=== PATIENT | female | born 1990 | race Caucasian/White ===

== ENCOUNTER 2017-08-06 08:47 | Emergency (ER) | payer MEDICAID ==
[2017-08-06] MEDS ORDERED: Ondansetron 4 MG/2 ML SDV IVPUSH ONE (09:18)
[2017-08-06] MEDS ORDERED: Sodium Chloride 0.9% 1,000 ML IV SCH (09:30)
[2017-08-06] MEDS ORDERED: Iopamidol 612 MG/ML 100 ML Bottle IVPUSH ONE (09:41)
[2017-08-06] MEDS ORDERED: Diatrizoate Meglumine/Diatrizoate Sodium 37% 120 ML Bottle PO ONE (09:41)
[2017-08-06] MEDS: Sodium Chloride 0.9% 10 ML Syringe FLUSH PRN ×2 (09:47→10:39)
--- NOTE | 2017-08-06 10:09 | EDM.PDOC ---
ED HPI GENERAL MEDICAL PROBLEM - General Chief Complaint: Abdominal Pain Stated Complaint: ABDOMINAL PAIN/VOMITING Time Seen by Provider: 08/06/17 08:57 Source of Information: Reports: Patient, RN Notes Reviewed History Limitations: Reports: No Limitations - History of Present Illness INITIAL COMMENTS - FREE TEXT/NARRATIVE: The patient states that she developed upper central abdominal pain this morning. It is sharp/burning in character. It came on gradually. It has been waxing and waning. She has not identified any modifiers. She also reports emesis and watery diarrhea that began this morning. She states that she had similar symptoms about 9 months ago. She saw a physician in [place]. Tests were done, including an EGD and colonoscopy, all of which was negative. She was prescribed a proton pump inhibitor, which she states she takes on occasion, but that she states does not help. The patient relates that she thinks she had some coffee grounds in her stool last week, and that when she had emesis this morning, it tasted kind of like blood, although there was no visible blood or coffee grounds in the emesis. No recent fever, urinary symptoms, chest pain, dyspnea, or palpitations. No recent antibiotics. No recent travel. No recent spoiled food. No similarly ill contacts. The patient does not have a PCP. Middle Abdominal Pain Score (Numeric/FACES): 10 - Related Data Allergies Allergy/AdvReac Type Severity Reaction Status Date / Time metoclopramide [From Reglan] Allergy Itching Verified 08/06/17 08:58 Home Meds: Home Meds Ondansetron [Zofran ODT] 4 mg PO Q8H PRN #10 tab.dis 08/06/17 [Rx] Past Medical History - Past Surgical History GI Surgical History: Reports: Cholecystectomy, Colonoscopy, EGD Female Surgical History: Reports: Section (x 3), Tubal Ligation Social & Family History - Tobacco Use Smoking Status *Q: Never Smoker - Caffeine Use Caffeine Use: Reports: Soda - Alcohol Use Alcohol Use History: No - Recreational Drug Use Recreational Drug Use: No - Living Situation & Occupation Living situation: Reports: Single, with Family Occupation: Unemployed ED ROS GENERAL - Review of Systems Review Of Systems: ROS reveals no pertinent complaints other than HPI. ED EXAM, GI/ABD - Physical Exam Exam: See Below Exam Limited By: No Limitations General Appearance: Alert, WD/WN, Mild Distress (Appears uncomfortable) Eyes: Bilateral: Normal Appearance, EOMI Ears: Normal External Exam, Hearing Grossly Normal Nose: Normal Inspection, No Blood Throat/Mouth: Normal Inspection, Normal Lips, Normal Voice, No Airway Compromise Head: Atraumatic, Normocephalic Neck: Normal Inspection, Full Range of Motion Respiratory/Chest: No Respiratory Distress, Lungs Clear, Normal Breath Sounds, No Accessory Muscle Use Cardiovascular: Normal Peripheral Pulses, Regular Rate, Rhythm, No Gallop, No JVD, No Murmur, No Rub GI/Abdominal Exam: Normal Bowel Sounds, Soft, No Organomegaly, No Distention, No Abnormal Bruit, No Mass, Pelvis Stable, Tender (Midline abdomen only. Nontender laterally.) (Female) Exam: Deferred Rectal (Female) Exam: Deferred Back Exam: Normal Inspection, Full Range of Motion. No: CVA Tenderness (L), CVA Tenderness (R) Extremities: Normal Inspection, Normal Range of Motion, No Pedal Edema, Normal Capillary Refill Neurological: Alert, Oriented, Normal Cognition, No Motor/Sensory Deficits Psychiatric: Normal Affect Skin Exam: Warm, Dry, Intact, Normal Color, No Rash Course - Vital Signs Last Recorded V/S: Last Vital Signs Temp 36.0 C 08/06/17 08:55 Pulse 80 08/06/17 08:55 Resp 16 08/06/17 08:55 BP 126/66 08/06/17 08:55 Pulse Ox 99 08/06/17 08:55 - Orders/Labs/Meds Orders: Active Orders 24 hr Category Date Time Status Hemoccult [Fecal Occult Blood Collection] [RC] Care 08/06/17 09:20 Active ASDIRECTED CULTURE STOOL + SHIGATOX [RM] Stat Lab 08/06/17 10:20 Received NOROVIRUS GROUP 1 & 2 RT-PCR Stat Lab 08/06/17 10:20 Received Labs: Laboratory Tests 08/06/17 08/06/17 08/06/17 Range/Units 09:49 09:49 10:20 WBC 7.14 (3.98-10.04) K/mm3 RBC 4.47 (3.98-5.22) M/mm3 Hgb 12.0 (11.2-15.7) gm/L Hct 37.3 (34.1-44.9) % MCV 83.4 (79.4-94.8) fl MCH 26.8 (25.6-32.2) pg MCHC 32.2 (32.2-35.5) g/dl RDW Std Deviation 45.7 (36.4-46.3) fL Plt Count 299 (182-369) K/mm3 MPV 11.1 (9.4-12.3) fl Neutrophils % (Manual) 54 (40-60) % Band Neutrophils % 0 (0-10) % Lymphocytes % (Manual) 42 H (20-40) % Atypical Lymphs % 0 % Monocytes % (Manual) 4 (2-10) % Eosinophils % (Manual) 0 L (0.7-5.8) % Basophils % (Manual) 0 L (0.1-1.2) Platelet Estimate Adequate RBC Morph Comment Normal Sodium 142 (136-145) mEq/L Potassium 4.2 (3.5-5.1) mEq/L Chloride 107 (98-107) mEq/L Carbon Dioxide 27 (21-32) mEq/L Anion Gap 12.2 (5-15) BUN 9 (7-18) mg/dL Creatinine 0.8 (0.55-1.02) mg/dL Est Cr Clr Drug Dosing 94.21 mL/min Estimated GFR (MDRD) > 60 (>60) mL/min BUN/Creatinine Ratio 11.3 L (14-18) Glucose 109 H (74-106) mg/dL Calcium 9.0 (8.5-10.1) mg/dL Total Bilirubin 0.2 (0.2-1.0) mg/dL AST 9 L (15-37) U/L ALT 20 (14-59) U/L Alkaline Phosphatase 86 (46-116) U/L Total Protein 7.4 (6.4-8.2) g/dl Albumin 3.8 (3.4-5.0) g/dl Globulin 3.6 gm/dL Albumin/Globulin Ratio 1.1 (1-2) Lipase 216 (73-393) U/L Urine Color (Yellow) Urine Appearance (Clear) Urine pH (5.0-8.0) Ur Specific [place] (1.005-1.030) Urine Protein (Negative) Urine Glucose (UA) (Negative) Urine Ketones (Negative) Urine Occult Blood (Negative) Urine Nitrite (Negative) Urine Bilirubin (Negative) Urine Urobilinogen (0.2-1.0) Ur Leukocyte Esterase (Negative) Urine RBC (0-5) /hpf Urine WBC (0-5) /hpf Ur Epithelial Cells (0-5) /hpf Urine Bacteria (FEW) /hpf Urine Mucus (FEW) /hpf Urine HCG, Qual Negative (NEGATIVE) 08/06/17 Range/Units 10:20 WBC (3.98-10.04) K/mm3 RBC (3.98-5.22) M/mm3 Hgb (11.2-15.7) gm/L Hct (34.1-44.9) % MCV (79.4-94.8) fl MCH (25.6-32.2) pg MCHC (32.2-35.5) g/dl RDW Std Deviation (36.4-46.3) fL Plt Count (182-369) K/mm3 MPV (9.4-12.3) fl Neutrophils % (Manual) (40-60) % Band Neutrophils % (0-10) % Lymphocytes % (Manual) (20-40) % Atypical Lymphs % % Monocytes % (Manual) (2-10) % Eosinophils % (Manual) (0.7-5.8) % Basophils % (Manual) (0.1-1.2) Platelet Estimate RBC Morph Comment Sodium (136-145) mEq/L Potassium (3.5-5.1) mEq/L Chloride (98-107) mEq/L Carbon Dioxide (21-32) mEq/L Anion Gap (5-15) BUN (7-18) mg/dL Creatinine (0.55-1.02) mg/dL Est Cr Clr Drug Dosing mL/min Estimated GFR (MDRD) (>60) mL/min BUN/Creatinine Ratio (14-18) Glucose (74-106) mg/dL Calcium (8.5-10.1) mg/dL Total Bilirubin (0.2-1.0) mg/dL AST (15-37) U/L ALT (14-59) U/L Alkaline Phosphatase (46-116) U/L Total Protein (6.4-8.2) g/dl Albumin (3.4-5.0) g/dl Globulin gm/dL Albumin/Globulin Ratio (1-2) Lipase (73-393) U/L Urine Color Light yellow (Yellow) Urine Appearance Clear (Clear) Urine pH 6.5 (5.0-8.0) Ur Specific [place] 1.015 (1.005-1.030) Urine Protein Negative (Negative) Urine Glucose (UA) Negative (Negative) Urine Ketones Negative (Negative) Urine Occult Blood Negative (Negative) Urine Nitrite Negative (Negative) Urine Bilirubin Negative (Negative) Urine Urobilinogen 0.2 (0.2-1.0) Ur Leukocyte Esterase Negative (Negative) Urine RBC Not seen (0-5) /hpf Urine WBC 0-5 (0-5) /hpf Ur Epithelial Cells 0-5 (0-5) /hpf Urine Bacteria Few (FEW) /hpf Urine Mucus Few (FEW) /hpf Urine HCG, Qual (NEGATIVE) Meds: Medications Discontinued Medications Generic Name Dose Route Start Last Admin Trade Name Freq PRN Reason Stop Dose Admin Diatrizoate Meglum/Diatrizoate Sod 90 ml 08/06/17 09:41 08/06/17 10:40 Gastrografin 37% PO 08/06/17 09:42 90 ml ONETIME ONE Administration Sodium Chloride 1,000 mls @ 150 mls/hr 08/06/17 09:30 08/06/17 09:46 Normal Saline IV 150 mls/hr ASDIRECTED FAZAL Administration Iopamidol 100 ml 08/06/17 09:41 08/06/17 10:39 Isovue-300 (61%) IVPUSH 08/06/17 09:42 100 ml ONETIME ONE Administration Loperamide HCl 4 mg 08/06/17 11:39 08/06/17 11:50 Imodium PO 08/06/17 11:40 4 mg ONETIME STA Administration Ondansetron HCl 4 mg 08/06/17 09:18 08/06/17 09:46 Zofran IVPUSH 08/06/17 09:19 4 mg ONETIME ONE Administration Sodium Chloride 10 ml 08/06/17 09:41 08/06/17 10:39 Saline Flush FLUSH 10 ml ONETIME PRN Administration IV FLUSH - Re-Assessments/Exams Free Text/Narrative Re-Assessment/Exam: 08/06/17 10:37 Notified that the stool Hemoccult was negative. 08/06/17 11:11 CT of the abdomen and pelvis with oral and IV contrast is read by Dr. Elizabeth as: 1. 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 This is normal variant. 2. Fluid within the colon compatible with clinical history of diarrhea. 3. No additional abnormality is identified on CT study of the abdomen and pelvis. 08/06/17 11:39 Test results discussed with the patient. Today's workup is unremarkable, and does not explain the cause of the patient's symptoms. It is possible that her abdominal pain is due to cramps caused by her diarrhea. I will start the patient on oral Imodium. I will refer her to Dr. Torre for follow-up, should her symptoms persist. Departure - Departure Time of Disposition: 11:40 Disposition: Home, Self-Care 01 Condition: Fair Clinical Impression: Gastroenteritis - Discharge Information Prescriptions: Ondansetron [Zofran ODT] 4 mg PO Q8H PRN #10 tab.dis PRN Reason: Nausea/Vomiting Instructions: Viral Gastroenteritis, Adult, [id number] Referrals: PCP,None [Primary Care Provider] - Sofia Farris MD [Physician] - Audie Torre MD [Physician] - Forms: ED Department Discharge Additional Instructions: You were seen in the emergency room for midline abdominal pain, vomiting, and diarrhea. Workup in the ER included blood work, a urinalysis, a urine test, numerous stool studies, and a CT scan of your abdomen and pelvis. Your entire workup was unremarkable, and does not explain the cause of your symptoms. Your vomiting and diarrhea are MOST LIKELY due to viral gastroenteritis. You have been started on the anti-nausea medicine Zofran. A prescription for this has been electronically sent to [facility], [address], across the road from [facility]. Dissolve 1 tablet on your tongue up to every 8 hours, as needed for nausea/vomiting. You have been started on the anti-diarrhea medicine Imodium (loperamide). This medicine is available [id number], and the generic is just as good as the brand name. Take one tablet (2 mg) after each loose bowel movement, to a maximum of 8 tablets (16 mg) within a 24-hour period. Stay well hydrated - Gatorade or Powerade are best. Eat a bland diet, such as oatmeal, bananas, rice, applesauce, etc. If your symptoms persist, follow-up with the surgeon Dr. Audie Torre for further evaluation. You may follow-up with Dr. Sofia Farris as a primary care physician. If any other problems, please do not hesitate to return to the ER. - My Orders Last 24 Hours: My Active Orders 08/06/17 09:20 Hemoccult [Fecal Occult Blood Collection] [RC] ASDIRECTED 08/06/17 10:20 CULTURE STOOL + SHIGATOX [RM] Stat [facility]OVIRUS GROUP 1 & 2 RT-PCR Stat - Assessment/Plan Last 24 Hours: My Active Orders 08/06/17 09:20 Hemoccult [Fecal Occult Blood Collection] [RC] ASDIRECTED 08/06/17 10:20 CULTURE STOOL + SHIGATOX [RM] Stat NOROVIRUS GROUP 1 & 2 RT-PCR Stat
--- NOTE | 2017-08-06 10:58 | CT ---
CT abdomen and pelvis Technique: Multiple axial sections were obtained from above the dome of the diaphragm inferiorly through the pubic symphysis. Intravenous and oral contrast was utilized. Reconstructed coronal and sagittal images were obtained. Comparison: No previous abdominal imaging. Findings: Small portion of the visualized lung bases are clear. Liver shows no focal parenchymal abnormality. Surgical clips are seen from prior cholecystectomy. Spleen appears within normal limits. Adrenal glands show no nodule. Pancreas is within normal limits. Kidneys show symmetric contrast enhancement without hydronephrosis or mass. Aorta shows no aneurysmal dilatation. No retroperitoneal adenopathy or mesenteric abnormalities are seen. Appendix is seen which appears normal. No pelvic mass or adenopathy is seen. Fluid is noted within portions of the colon correlating to clinical history of diarrhea. No bowel wall thickening is seen. No bowel dilatation is identified. No free fluid or inflammatory change is seen. Bone window settings were reviewed which appear within normal limits for the patient's age. Delayed images shows 2 ureters on both sides. No ureteral dilatation is seen. Impression: 1. 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 This is normal variant. 2. Fluid within the colon compatible with clinical history of diarrhea. 3. No additional abnormality is identified on CT study of the abdomen and pelvis. Diagnostic code #2
[2017-08-06] MEDS ORDERED: Loperamide 2 MG Cap PO STA (11:39)
== END 2017-08-06 12:02 | disposition home or self-care (01) ==
LOC: JD.ED 08:47
DX: K52.9 Noninfective gastroenteritis and colitis, unspecified (principal); Z88.8 Allergy status to other drugs, medicaments and biological substances
CPT/HCPCS: 36415; 74177; 80053; 81001; 81025; 82270; 83690; 85025; 87046; 87425; 87798; 89055; 96361; 96374; 99284; A9270; J2405; J7040; J7050; Q9963; Q9967; 87427

== ENCOUNTER 2019-05-12 19:05 | Emergency (ER) | payer MEDICAID ==
--- NOTE | 2019-05-12 20:11 | EDM.PDOC ---
ED HPI GENERAL MEDICAL PROBLEM - General Chief Complaint: General Stated Complaint: BREAST PAIN Time Seen by Provider: 05/12/19 19:28 Source of Information: Reports: Patient, RN Notes Reviewed History Limitations: Reports: No Limitations - History of Present Illness INITIAL COMMENTS - FREE TEXT/NARRATIVE: Patient is a 28-year-old female who presents to the ED for evaluation of left- sided breast pain. The patient states that she developed these pains and noticed a lump, and was evaluated by Francisca Boateng, at [facility] on , she states that she is scheduled for a mammography and ultrasound about 1-1/2 weeks from now. Patient states she is having left breast pain, that is sharp stabbing in nature. The patient states she is having some sort of white nipple discharge, but is not liquid-like, she is not breast feeding at this time. The patient states she has no chance of , as she has had a tubal ligation is currently on her period. Patient states that she has been having left breast pain, feelings of a lump in the breast tissue, and generalized itchiness with bumpy skin on the left lateral breast at around the 3 :00 position. The patient notes that she has had a maternal grandmother, who has had a lump removed, and the maternal grandmother's 20 also had a lump removed, she states this was around their early 30s, she states that she has a second cousin on her mother's side also has had a lump removed, she does not know if any of these have been cancerous. She does not report any other general feelings of being unwell. 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 [No Known Home Meds] 05/12/19 [History] Past Medical History - Past Surgical History GI Surgical History: Reports: Cholecystectomy, Colonoscopy, EGD Female Surgical History: Reports: Section (x 3), Tubal Ligation Social & Family History - Caffeine Use Caffeine Use: Reports: Soda - Living Situation & Occupation Living situation: Reports: Single, with Family Occupation: Unemployed ED ROS GENERAL - Review of Systems Review Of Systems: See Below Constitutional: Denies: Fever, Chills HEENT: Reports: No Symptoms Respiratory: Denies: Shortness of Breath Cardiovascular: Denies: Chest Pain Endocrine: Reports: No Symptoms GI/Abdominal: Denies: Abdominal Pain, Diarrhea, Nausea, Vomiting : Reports: Other (breast lump/pain). Denies: Discharge, Dysuria Musculoskeletal: Reports: No Symptoms Skin: Reports: Other (slightly bumpy skin on left lateral breast, itchy at times ) Neurological: Reports: No Symptoms Psychiatric: Reports: No Symptoms Hematologic/Lymphatic: Reports: No Symptoms Immunologic: Reports: No Symptoms ED EXAM, GENERAL - Physical Exam Exam: See Below Exam Limited By: No Limitations General Appearance: Alert, WD/WN, No Apparent Distress, Anxious Throat/Mouth: Normal Inspection, Normal Lips, Normal Teeth, Normal Gums, Normal Oropharynx, Normal Voice, No Airway Compromise Head: Atraumatic, Normocephalic Neck: Normal Inspection, Supple, Non-Tender, Full Range of Motion Respiratory/Chest: No Respiratory Distress, Lungs Clear, Normal Breath Sounds, No Accessory Muscle Use, Chest Non-Tender Cardiovascular: Normal Peripheral Pulses, Regular Rate, Rhythm, No Murmur GI/Abdominal: Normal Bowel Sounds, Soft, Non-Tender, No Distention, No Mass (Female) Exam: Other (Breast exam revealed slightly lumpy her the normal tissue, on the right breast but no discrete lumps or nodules noted. Left breast : Around the 9 o'clock position on the left breast near the M[place] LOC, there is a very tiny palpable firm rubbery-type lump noted, the patient states this is what she thought she felt, and states that this did provoke some pain when palpated. No nipple discharge was noted on either breast.) Extremities: Normal Inspection, Normal Capillary Refill Neurological: Alert, Oriented, Normal Cognition, No Motor/Sensory Deficits Psychiatric: Normal Affect, Normal Mood, Anxious Skin Exam: Warm, Dry, Intact, Normal Color, No Rash Lymphatic: No Adenopathy (in axilla) Course - Vital Signs Last Recorded V/S: Last Vital Signs Temp 97.5 F 05/12/19 19:23 Pulse 79 05/12/19 19:23 Resp 20 05/12/19 19:23 BP 112/50 L 05/12/19 19:23 Pulse Ox 99 05/12/19 19:23 - Re-Assessments/Exams Free Text/Narrative Re-Assessment/Exam: 05/12/19 20:25 Patient was evaluated in the ED today for her painful left breast. Patient was worried regarding the length of time it is going to take until she gets her mammography at [facility], due to the history of her grandmother and second cousin having lumps she was concerned. I did consult with our radiology department, and they might have some openings this week, midweek. I did provide the patient with an outpatient order for mammography and ultrasound of the left breast for further evaluation, she may still follow up with Francisca Boateng for results. I will give her other general recommendations and discharge her home at this time. Departure - Departure Time of Disposition: 20:08 Disposition: Home, Self-Care 01 Condition: Fair Clinical Impression: Painful lumpy left breast - Discharge Information *PRESCRIPTION DRUG MONITORING PROGRAM REVIEWED*: No *COPY OF PRESCRIPTION DRUG MONITORING REPORT IN PATIENT JING: No Instructions: Breast Self-Awareness, [id number], Mammogram, [id number] Referrals: Francisca Boateng, T[employer] EDGE MACHINE OPERATOR [Primary Care Provider] - Forms: ED Department Discharge Additional Instructions: You were evaluated in the ER [facility] for your left breast pain and concerns of a left breast lump. An outpatient order for mammography and breast ultrasound has been provided to you, I checked with radiology, and there are openings in the schedule as early as this week Sunday at 3 PM for mammography, please call [phone], at around 8 AM tomorrow to schedule these appointments. You may still follow up with Francisca Boateng after the tests have been performed. You may take Tylenol or ibuprofen every 6 hours as needed for further pain relief. Please return to the ED if her symptoms should change or worsen.
== END 2019-05-12 20:23 | disposition home or self-care (01) ==
LOC: JD.ED 19:05
DX: N63.20 Unspecified lump in the left breast, unspecified quadrant (principal); N64.4 Mastodynia; Z88.8 Allergy status to other drugs, medicaments and biological substances
CPT/HCPCS: 99283

== ENCOUNTER 2019-11-25 00:30 | Emergency (ER) | payer MEDICAID ==
[2019-11-25] MEDS ORDERED: Ondansetron 4 MG Tab.DIS PO ONE (00:53)
--- NOTE | 2019-11-25 00:59 | EDM.PDOC ---
ED HPI GENERAL MEDICAL PROBLEM - General Chief Complaint: Abdominal Pain Stated Complaint: ABDOMINAL PAIN Time Seen by Provider: 11/25/19 00:33 Source of Information: Reports: Patient History Limitations: Reports: No Limitations - History of Present Illness INITIAL COMMENTS - FREE TEXT/NARRATIVE: The patient presents with lower abdominal pain, back pain and nausea. This all started yesterday. She thought she was going to have her period. She had some light bleeding and then usually she will get heavy bleeding but it did not come. She has more pain then normal. She had a tubal ligation 3 years ago. Her LNMP was in July. It is not uncommon for her periods to be spaced out. She also had some low back pain with it. She also had the urge to push when urinating. She had nausea but no vomiting. Onset: Gradual Duration: Day(s): (yesterday) Location: Reports: Abdomen Quality: Reports: Sharp Severity: Moderate Improves with: Reports: None Worsens with: Reports: None Associated Symptoms: Reports: Nausea/Vomiting. Denies: Chest Pain, Cough, Fever /Chills, Headaches, Shortness of Breath Lower Abdomen Pain Score (Numeric/FACES): 5 - Related Data Allergies Allergy/AdvReac Type Severity Reaction Status Date / Time metoclopramide [From Reglan] Allergy Itching Verified 11/25/19 00:43 Home Meds: Home Meds . [No Known Home Meds] 05/12/19 [History] Past Medical History - Past Surgical History GI Surgical History: Reports: Cholecystectomy, Colonoscopy, EGD Female Surgical History: Reports: Section (x 3), Tubal Ligation Social & Family History - Tobacco Use Smoking Status *Q: Never Smoker Second Hand Smoke Exposure: No - Caffeine Use Caffeine Use: Reports: None - Recreational Drug Use Recreational Drug Use: No - Living Situation & Occupation Living situation: Reports: Single, with Family Occupation: Unemployed ED ROS GENERAL - Review of Systems Review Of Systems: See Below Constitutional: Reports: No Symptoms HEENT: Reports: No Symptoms Respiratory: Reports: No Symptoms Cardiovascular: Reports: No Symptoms Endocrine: Reports: No Symptoms GI/Abdominal: Reports: Abdominal Pain, Nausea. Denies: Diarrhea, Vomiting : Reports: No Symptoms Musculoskeletal: Reports: Back Pain ED EXAM, GI/ABD - Physical Exam Exam: See Below Exam Limited By: No Limitations General Appearance: Alert, No Apparent Distress Ears: Normal External Exam Nose: Normal Inspection Head: Atraumatic, Normocephalic Neck: Normal Inspection Respiratory/Chest: No Respiratory Distress, Lungs Clear, Normal Breath Sounds Cardiovascular: Regular Rate, Rhythm, No Edema, No Murmur GI/Abdominal Exam: Soft, Non-Tender, No Organomegaly, No Mass Back Exam: Normal Inspection Extremities: Normal Inspection Course - Vital Signs Last Recorded V/S: Last Vital Signs Temp 97.5 F 11/25/19 00:38 Pulse 70 11/25/19 00:38 Resp 18 11/25/19 00:38 BP 122/69 11/25/19 00:38 Pulse Ox 100 11/25/19 00:38 - Orders/Labs/Meds Orders: Active Orders 24 hr Category Date Time Status Abdomen Pelvis wo Cont [CT] Stat Exams 11/25/19 01:43 Taken ED Antiemetic Medication Reflex [OM.PC] Stat Oth 11/25/19 00:54 Ordered Labs: Laboratory Tests 11/25/19 11/25/19 11/25/19 Range/Units 00:49 01:00 01:00 WBC 8.81 (3.98-10.04) K/mm3 RBC 4.37 (3.98-5.22) M/mm3 Hgb 12.6 (11.2-15.7) gm/dl Hct 38.3 (34.1-44.9) % MCV 87.6 D (79.4-94.8) fl MCH 28.8 (25.6-32.2) pg MCHC 32.9 (32.2-35.5) g/dl RDW Std Deviation 44.4 (36.4-46.3) fL Plt Count 337 (182-369) K/mm3 MPV 11.3 (9.4-12.3) fl Neut % (Auto) 44.8 (34.0-71.1) % Lymph % (Auto) 44.4 (19.3-51.7) % [place] % (Auto) 7.2 (4.7-12.5) % Eos % (Auto) 3.0 (0.7-5.8) Baso % (Auto) 0.5 (0.1-1.2) % Neut # (Auto) 3.96 (1.56-6.13) K/mm3 Lymph # (Auto) 3.91 H (1.18-3.74) K/mm3 [place] # (Auto) 0.63 H (0.24-0.36) K/mm3 Eos # (Auto) 0.26 (0.04-0.36) K/mm3 Baso # (Auto) 0.04 (0.01-0.08) K/mm3 Sodium 142 (136-145) mEq/L Potassium 3.4 L (3.5-5.1) mEq/L Chloride 105 (98-107) mEq/L Carbon Dioxide 27 (21-32) mEq/L Anion Gap 13.4 (5-15) BUN 10 (7-18) mg/dL Creatinine 0.9 (0.55-1.02) mg/dL Est Cr Clr Drug Dosing 81.50 mL/min Estimated GFR (MDRD) > 60 (>60) mL/min BUN/Creatinine Ratio 11.1 L (14-18) Glucose 97 (74-106) mg/dL Calcium 8.7 (8.5-10.1) mg/dL Total Bilirubin 0.2 (0.2-1.0) mg/dL AST 9 L (15-37) U/L ALT 19 (14-59) U/L Alkaline Phosphatase 86 (46-116) U/L Total Protein 7.3 (6.4-8.2) g/dl Albumin 3.9 (3.4-5.0) g/dl Globulin 3.4 gm/dL Albumin/Globulin Ratio 1.2 (1-2) Lipase 91 (73-393) U/L HCG, Qual (NEGATIVE) Urine Color Dark yellow (Yellow) Urine Appearance Clear (Clear) Urine pH 6.0 (5.0-8.0) Ur Specific [place] > or = 1.030 (1.005-1.030) Urine Protein Trace H (Negative) Urine Glucose (UA) Negative (Negative) Urine Ketones Negative (Negative) Urine Occult Blood 2+ H (Negative) Urine Nitrite Negative (Negative) Urine Bilirubin Negative (Negative) Urine Urobilinogen 0.2 (0.2-1.0) Ur Leukocyte Esterase Negative (Negative) U Hyaline Cast (Auto) 0-5 (0-5) /lpf Urine RBC 0-5 (0-5) /hpf Urine WBC 0-5 (0-5) /hpf Ur Squamous Epith Cells 0-5 (0-5) /hpf Amorphous Sediment Few H (NOT SEEN) /hpf Urine Bacteria Moderate H (FEW) /hpf Urine Mucus Many H (FEW) /hpf 11/25/19 Range/Units 01:00 WBC (3.98-10.04) K/mm3 RBC (3.98-5.22) M/mm3 Hgb (11.2-15.7) gm/dl Hct (34.1-44.9) % MCV (79.4-94.8) fl MCH (25.6-32.2) pg MCHC (32.2-35.5) g/dl RDW Std Deviation (36.4-46.3) fL Plt Count (182-369) K/mm3 MPV (9.4-12.3) fl Neut % (Auto) (34.0-71.1) % Lymph % (Auto) (19.3-51.7) % [place] % (Auto) (4.7-12.5) % Eos % (Auto) (0.7-5.8) Baso % (Auto) (0.1-1.2) % Neut # (Auto) (1.56-6.13) K/mm3 Lymph # (Auto) (1.18-3.74) K/mm3 [place] # (Auto) (0.24-0.36) K/mm3 Eos # (Auto) (0.04-0.36) K/mm3 Baso # (Auto) (0.01-0.08) K/mm3 Sodium (136-145) mEq/L Potassium (3.5-5.1) mEq/L Chloride (98-107) mEq/L Carbon Dioxide (21-32) mEq/L Anion Gap (5-15) BUN (7-18) mg/dL Creatinine (0.55-1.02) mg/dL Est Cr Clr Drug Dosing mL/min Estimated GFR (MDRD) (>60) mL/min BUN/Creatinine Ratio (14-18) Glucose (74-106) mg/dL Calcium (8.5-10.1) mg/dL Total Bilirubin (0.2-1.0) mg/dL AST (15-37) U/L ALT (14-59) U/L Alkaline Phosphatase (46-116) U/L Total Protein (6.4-8.2) g/dl Albumin (3.4-5.0) g/dl Globulin gm/dL Albumin/Globulin Ratio (1-2) Lipase (73-393) U/L HCG, Qual Negative (NEGATIVE) Urine Color (Yellow) Urine Appearance (Clear) Urine pH (5.0-8.0) Ur Specific [place] (1.005-1.030) Urine Protein (Negative) Urine Glucose (UA) (Negative) Urine Ketones (Negative) Urine Occult Blood (Negative) Urine Nitrite (Negative) Urine Bilirubin (Negative) Urine Urobilinogen (0.2-1.0) Ur Leukocyte Esterase (Negative) U Hyaline Cast (Auto) (0-5) /lpf Urine RBC (0-5) /hpf Urine WBC (0-5) /hpf Ur Squamous Epith Cells (0-5) /hpf Amorphous Sediment (NOT SEEN) /hpf Urine Bacteria (FEW) /hpf Urine Mucus (FEW) /hpf Meds: Medications Discontinued Medications Generic Name Dose Route Start Last Admin Trade Name Thadq PRN Reason Stop Dose Admin Ondansetron HCl 4 mg 11/25/19 00:53 11/25/19 01:06 Zofran Odt PO 11/25/19 00:54 4 mg ONETIME ONE Administration - Re-Assessments/Exams Free Text/Narrative Re-Assessment/Exam: 11/25/19 00:58 I ordered labs, UA and zofran 4mg ODT. 11/25/19 02:25 Her CBC and CMP look good. Her HCG is negative. Her UA shows some blood. 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 No nephrolithiasis, hydronephrosis or hydroureter. Departure - Departure Time of Disposition: 14:30 Disposition: Home, Self-Care 01 Condition: Good Clinical Impression: Nausea Abdominal pain Qualifiers: Abdominal location: lower abdomen, unspecified Qualified Code(s): R10.30 - Lower abdominal pain, unspecified - Discharge Information *PRESCRIPTION DRUG MONITORING PROGRAM REVIEWED*: Not Applicable *COPY OF PRESCRIPTION DRUG MONITORING REPORT IN PATIENT JING: Not Applicable Referrals: Francisca Boateng, OILER HELPER [Primary Care Provider] - 1 Week Forms: ED Department Discharge Additional Instructions: Drink plenty of fluids. Take motrin or tylenol for pain. Follow up with Francisca within a week. Please return if you are worse. Sepsis Event Note - Evaluation Sepsis Screening Result: No Definite Risk - Focused Exam Vital Signs: Vital Signs Temp Pulse Resp BP Pulse Ox 11/25/19 00:38 97.5 F 70 18 122/69 100 Date Exam was Performed: 11/25/19 Time Exam was Performed: 02:25 - My Orders Last 24 Hours: My Active Orders 11/25/19 00:54 ED Antiemetic Medication Reflex [OM.PC] Stat 11/25/19 01:43 Abdomen Pelvis wo Cont [CT] Stat - Assessment/Plan Last 24 Hours: My Active Orders 11/25/19 00:54 ED Antiemetic Medication Reflex [OM.PC] Stat 11/25/19 01:43 Abdomen Pelvis wo Cont [CT] Stat
--- NOTE | 2019-11-25 09:20 | CT ---
CT abdomen and pelvis Technique: Multiple axial sections were obtained from the top of the liver inferiorly through the pubic symphysis. Intravenous and oral contrast not utilized. Study has been performed as a ureteral stone protocol. Comparison: Prior CT abdomen and pelvis exam of 08/06/17. Findings: Duplicated collecting systems with 2 ureters noted on both sides. No ureteral dilatation is seen. No ureteral or renal calculi are seen. Visualized lung bases show nothing acute. Noncontrast appearance of the liver shows no discrete abnormality. Spleen appears within normal limits. Adrenal glands show no nodule. Pancreas shows no abnormality. Surgical clips are seen from prior cholecystectomy. Aorta shows no aneurysm. No retroperitoneal adenopathy or mesenteric abnormalities are seen. Appendix is seen which is normal. No pelvic mass or adenopathy is seen. No free fluid or inflammatory change is appreciated. Bone window settings were reviewed which appear within normal limits for the patient's age. Small fat-containing umbilical hernia is noted. Impression: 1. Duplicated collecting system within both kidneys. 2. Nothing acute is appreciated on noncontrast CT study of the abdomen and pelvis. Diagnostic code #2 This report was dictated in MDT I agree with preliminary report from [facility], finalized on 11/25/19, 3:19 AM [place] Daylight Time
== END 2019-11-25 02:33 | disposition home or self-care (01) ==
LOC: JD.ED 00:30
DX: R10.30 Lower abdominal pain, unspecified (principal); R11.0 Nausea; Z98.51 Tubal ligation status; Z90.49 Acquired absence of other specified parts of digestive tract; Z88.8 Allergy status to other drugs, medicaments and biological substances
CPT/HCPCS: 36415; 74176; 80053; 81001; 83690; 84703; 85025; 99284; A9270

== ENCOUNTER 2020-04-03 14:20 | Emergency (ER) | payer MEDICAID ==
[2020-04-03] MEDS ORDERED: LORazepam 2 MG/ML SDV IVPUSH ONE (14:56)
--- NOTE | 2020-04-03 17:01 | EDM.PDOC ---
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 She feels better now after arrival to ED. she has not been ill with cough, fever or other prior atypical sx. - Related Data Allergies Allergy/AdvReac Type Severity Reaction Status Date / Time metoclopramide [From Reglan] Allergy Itching Verified 04/03/20 14:32 Home Meds: Home Meds . 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: - Past Surgical History GI Surgical History: Reports: Cholecystectomy, Colonoscopy, EGD Female Surgical History: Reports: Section, Tubal Ligation Social & Family History - Tobacco Use Smoking Status *Q: Never Smoker Second Hand Smoke Exposure: No - Caffeine Use Caffeine Use: Reports: None - Recreational Drug Use Recreational Drug Use: No - Living Situation & Occupation Living situation: Reports: Single, with Family Occupation: Unemployed ED ROS GENERAL - Review of Systems Review Of Systems: See Below Constitutional: Denies: Fever, Chills HEENT: Denies: Rhinitis, Throat Pain Respiratory: Denies: Shortness of Breath, Cough Cardiovascular: Reports: Chest Pain (gone) GI/Abdominal: Denies: Abdominal Pain, Nausea, Vomiting Musculoskeletal: Denies: Shoulder Pain, Arm Pain, Back Pain Skin: Reports: No Symptoms Neurological: Reports: Dizziness (gone) ED EXAM, GENERAL - Physical Exam Exam: See Below General Appearance: Alert, Anxious (mild) Eye Exam: Bilateral Eye: PERRL Head: Atraumatic Neck: Supple Respiratory/Chest: No Respiratory Distress, Lungs Clear Cardiovascular: Regular Rate, Rhythm GI/Abdominal: Soft, Non-Tender Back Exam: No: CVA Tenderness (L), CVA Tenderness (R) Extremities: Normal Inspection, Normal Range of Motion. No: Pedal Edema, Redness Neurological: Alert, Oriented, No Motor/Sensory Deficits Skin Exam: Warm, Dry, Normal Color EKG INTERPRETATION EKG Date: 04/03/20 Rhythm: NSR [place]: Normal P-Wave: Present QRS: Normal ST-T: Normal Course - Vital Signs Last Recorded V/S: Last Vital Signs Temp 97.1 F 04/03/20 14:31 Pulse 81 04/03/20 14:31 Resp 22 H 04/03/20 14:31 BP 134/74 04/03/20 14:31 Pulse Ox 98 04/03/20 14:31 - Orders/Labs/Meds Labs: Laboratory Tests 04/03/20 Range/Units 15:05 D-Dimer, Quantitative 0.22 (0.19-0.50) mg/L Meds: Medications Discontinued Medications Generic Name Dose Route Start Last Admin Trade Name Kevin PRN Reason Stop Dose Admin Lorazepam 0.5 mg 04/03/20 14:56 04/03/20 15:11 Ativan IVPUSH 04/03/20 14:57 0.5 mg ONETIME ONE Administration - Re-Assessments/Exams Free Text/Narrative Re-Assessment/Exam: 04/05/20 07:13 EKG nl, CXR and d dimer nl, sinus rythm, no ectopy, discharge instr. as documented. Departure - Departure Time of Disposition: 16:58 Disposition: Home, Self-Care 01 Condition: Fair Clinical Impression: Palpitations Instructions: Palpitations, Apoa-ze-Ojzy Referrals: Francisca Boateng NP [Primary Care Provider] - Forms: ED Department Discharge Additional Instructions: Your heart and lungs have checked out really well. I suspect what you experienced today were extra heart beats, we call those PVC's. We have not seen more of those while here in the ED. You have been given ativan 0.5 mg for relaxation. Do not drive the remainder of today due to sedative effect. Follow up clinic as needed. Return to ED as needed. Sepsis Event Note (ED) - Evaluation Sepsis Screening Result: No Definite Risk
--- NOTE | 2020-04-05 11:14 | CR ---
Chest: Portable view of the chest was obtained. Comparison: No prior chest imaging is available. Heart size and mediastinum are normal. Lungs are clear with no acute parenchymal change. Bony structures are grossly intact. Impression: 1. Nothing acute is seen on portable chest x-ray. Diagnostic code #1 This report was dictated in MDT
== END 2020-04-03 17:11 | disposition home or self-care (01) ==
LOC: JD.ED 14:20
DX: R00.2 Palpitations (principal); R42 Dizziness and giddiness; R07.89 Other chest pain; Z88.8 Allergy status to other drugs, medicaments and biological substances
CPT/HCPCS: 36415; 71045; 85379; 93005; 96374; 99285; J2060; 93010; 99283

== ENCOUNTER 2020-07-28 22:09 | Emergency (ER) | payer MEDICAID ==
[2020-07-28] MEDS ORDERED: Ketorolac 30 MG/ML SDV IVPUSH ONE (22:35)
[2020-07-28] MEDS ORDERED: Ondansetron 4 MG/2 ML SDV IVPUSH ONE (22:35)
[2020-07-28] MEDS ORDERED: Sodium Chloride 0.9% 1,000 ML IV STA (22:35)
[2020-07-28] MEDS ORDERED: diphenhydrAMINE 50 MG/ML SDV IVPUSH ONE (22:35)
--- NOTE | 2020-07-28 22:43 | EDM.PDOC ---
ED HPI GENERAL MEDICAL PROBLEM - General Chief Complaint: Headache Stated Complaint: HEADACHE Time Seen by Provider: 07/28/20 22:27 Source of Information: Reports: Patient, RN Notes Reviewed History Limitations: Reports: No Limitations - History of Present Illness INITIAL COMMENTS - FREE TEXT/NARRATIVE: Patient is a 29-year-old female presenting to the emergency department with complaints of headache consistently for the last week and episodes of frequent headaches for the last 2 months. She describes it as an intense frontal headache with blurred vision. She does have photophobia. Complains of feeling of "bubbling "in her ears. She has no known history of migraines. Has not been evaluated since the onset of these headaches 2 months ago. She does state that a couple months back she had bilateral otitis media which was treated with antibiotics but never reevaluated. She denies any nausea associated with these headaches. She is had no fever or chills. 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 Denies: Fever, Chills, Decreased Appetite HEENT: Reports: Sinus Problem (pain and pressure), Vision Change. Denies: Ear Discharge, Ear Pain, Rhinitis, Vertigo Respiratory: Reports: No Symptoms Cardiovascular: Reports: No Symptoms Endocrine: Reports: No Symptoms GI/Abdominal: Reports: No Symptoms. Denies: Nausea : Reports: No Symptoms Musculoskeletal: Reports: No Symptoms Skin: Reports: No Symptoms Neurological: Reports: Headache. Denies: Dizziness, Difficulty Walking, Change in Speech, Gait Disturbance Psychiatric: Reports: No Symptoms Hematologic/Lymphatic: Reports: No Symptoms Immunologic: Reports: No Symptoms - Physical Exam Exam: See Below General Appearance: Alert, Mild Distress Eye Exam: Bilateral Eye: Normal Inspection, PERRL Ears: Normal External Exam, Normal Canal, Hearing Grossly Normal, Other (bilateral TM fluid) Nose: Normal Inspection, Normal Mucosa, No Blood Head Exam: Atraumatic, Normocephalic, Facial Tenderness (frontal and maxillary sinuses) Respiratory/Chest: No Respiratory Distress, Lungs Clear, Normal Breath Sounds, No Accessory Muscle Use, Chest Non-Tender Cardiovascular: Normal Peripheral Pulses, Regular Rate, Rhythm, No Edema, No Gallop, No JVD, No Murmur, No Rub Neuro Exam (Abbreviated): Alert, Oriented, CN II-XII Intact, Normal Cognition, N ormal Gait, Normal Reflexes, No Motor/Sensory Deficits Psychiatric: Normal Affect, Normal Mood Skin Exam: Warm, Dry, Intact, Normal Color, No Rash Course - Vital Signs Last Recorded V/S: Last Vital Signs Temp 96.6 F L 07/28/20 22:27 Pulse 88 07/28/20 22:27 Resp 20 07/28/20 22:27 BP 132/85 07/28/20 22:27 Pulse Ox 100 07/28/20 22:27 - Orders/Labs/Meds Orders: Active Orders 24 hr Category Date Time Status Head wo Cont [CT] Stat Exams 07/28/20 22:36 Taken Sodium Chloride 0.9% [Normal Saline] 1,000 ml Med 07/28/20 22:35 Active IV NOW Medication Orders Sodium Chloride (Normal Saline) 1,000 mls @ 999 mls/hr IV NOW STA Stop: 07/28/20 23:35 Last Admin: 07/28/20 22:54 Dose: 999 mls/hr Documented by: LINH Meds: Medications Generic Name Dose Route Start Last Admin Trade Name Freq PRN Reason Stop Dose Admin Sodium Chloride 1,000 mls @ 999 mls/hr 07/28/20 22:35 07/28/20 22:54 Normal Saline IV 07/28/20 23:35 999 mls/hr NOW STA Administration Discontinued Medications Generic Name Dose Route Start Last Admin Trade Name Kevin PRSerena Reason Stop Dose Admin Diphenhydramine HCl 25 mg 07/28/20 22:35 07/28/20 22:56 Benadryl IVPUSH 07/28/20 22:36 25 mg ONETIME ONE Administration Ketorolac Tromethamine 30 mg 07/28/20 22:35 07/28/20 22:54 Toradol IVPUSH 07/28/20 22:36 30 mg ONETIME ONE Administration Ondansetron HCl 4 mg 07/28/20 22:35 07/28/20 22:54 Zofran IVPUSH 07/28/20 22:36 4 mg ONETIME ONE Administration - Re-Assessments/Exams Free Text/Narrative Re-Assessment/Exam: Patient is a 29-year-old female presenting to the emergency department with complaints of a 2-week month history of intermittent headaches with worsening symptoms over the last week. She has taken numerous [id number] medications with little to no relief. Complains of sinus pressure and "bubbling" in her ears. She has tried numerous [id number]-[id number] medications with little to no relief. She also complains of intermittent blurred vision. Denies any history of migraines. States a few months back she did have bilateral otitis media for which she was treated with antibiotics. I have ordered CT scan of the head without contrast, NS 1 L bolus, Toradol 30 mg IV, Benadryl 25 mg IV, Zofran 4 mg IV. 07/28/20 23:33 Patient's headache has resolved with the medications given. Head CT shows no acute intracranial abnormalities. Given that she has had this sinus pressure for a number of weeks and intermittently for a number of months, we will treat f or bacterial sinusitis. We will start her on Augmentin twice a day for 5 days. Also sent a prescription for Flonase nasal spray. Recommend follow-up with her primary care provider at her next available visit. Return to ER as needed. Discharge instructions as documented. Departure - Departure Time of Disposition: 23:34 Disposition: Home, Self-Care 01 Condition: Good Clinical Impression: Headache Qualifiers: Headache type: unspecified Headache chronicity pattern: unspecified pattern Intractability: not intractable Qualified Code(s): R51.9 - Headache, unspecified - Discharge Information *PRESCRIPTION DRUG MONITORING PROGRAM REVIEWED*: No *COPY OF PRESCRIPTION DRUG MONITORING REPORT IN PATIENT JING: No Prescriptions: Amoxicillin/Clavulanate K [Augmentin 875-125 MG] 1 tab PO BID 5 Days #9 tablet Fluticasone Propionate [Flonase] 2 sprays NASBOTH DAILY #1 bottle Referrals: Francisca Boateng CROSSING TENDER [Primary Care Provider] - Forms: ED Department Discharge Additional Instructions: You were seen in the emergency department today for intermittent headaches for the last 2 months with worsening of symptoms over the last week. Exam findings it did show fluid in both ears with no signs of infection. Head CT was completed and showed no abnormalities. While in the ER, you received IV fluids, Benadryl, Zofran, and Toradol which did relieve your headache. You been started on Augmentin for the treatment of bacterial sinusitis. Take this medication as prescribed. You have also been prescribed Flonase nasal spray to help facilitate drainage of the fluid from the ears. Recommend follow-up with your primary care provider at her next available visit. Return to the ER as needed. Sepsis Event Note (ED) - Evaluation Sepsis Screening Result: No Definite Risk - Focused Exam Vital Signs: Vital Signs Temp Pulse Resp BP Pulse Ox 07/28/20 22:27 96.6 F L 88 20 132/85 100 - My Orders Last 24 Hours: My Active Orders 07/28/20 22:35 Sodium Chloride 0.9% [Normal Saline] 1,000 ml IV NOW 07/28/20 22:36 Head wo Cont [CT] Stat - Assessment/Plan Last 24 Hours: My Active Orders 07/28/20 22:35 Sodium Chloride 0.9% [Normal Saline] 1,000 ml IV NOW 07/28/20 22:36 Head wo Cont [CT] Stat
[2020-07-28] MEDS ORDERED: Amoxicillin/Clavulanate K 875-125 MG Tab PO ONE (23:37)
--- NOTE | 2020-07-29 08:46 | CT ---
Head CT Technique: Multiple axial sections through the brain were obtained. Intravenous contrast was not utilized. Comparison: No prior intracranial imaging is available. Findings: Ventricles along with basal cisterns and sulci over the convexities are within normal limits. No abnormal parenchymal densities are seen. No evidence of intracranial hemorrhage. No midline shift or mass-effect is appreciated. Bone window settings were reviewed. The visualized paranasal sinuses and mastoid sinuses show nothing acute. No acute calvarial finding is appreciated. Impression: 1. Nothing acute is identified on noncontrast head CT exam. Diagnostic code #1 I agree with preliminary report from [facility], finalized on 07/29/20, 12:22 AM OBSTETRICS GYNECOLOGY PHYSICIAN
== END 2020-07-28 23:56 | disposition home or self-care (01) ==
LOC: JD.ED 22:09
DX: R51.9 Headache, unspecified (principal); Z88.8 Allergy status to other drugs, medicaments and biological substances
CPT/HCPCS: 70450; 96374; 96375; 99284; A9270; J1200; J1885; J2405; J7030

== ENCOUNTER 2020-08-13 20:01 | Emergency (ER) | payer MEDICAID ==
[2020-08-13] MEDS ORDERED: Ondansetron 4 MG/2 ML SDV IVPUSH ONE (20:39)
[2020-08-13] MEDS ORDERED: diphenhydrAMINE 50 MG/ML SDV IVPUSH STA (20:39)
[2020-08-13] MEDS ORDERED: Ketorolac 30 MG/ML SDV IVPUSH STA (20:39)
[2020-08-13] MEDS ORDERED: Sodium Chloride 0.9% 1,000 ML IV ONE (20:39)
--- NOTE | 2020-08-13 20:47 | EDM.PDOC ---
ED HPI GENERAL MEDICAL PROBLEM - General Chief Complaint: Headache Stated Complaint: HEADACHE,VOMITING Time Seen by Provider: 08/13/20 20:05 Source of Information: Reports: Patient, Old Records (ED visit 07/28/2020) History Limitations: Reports: No Limitations - History of Present Illness INITIAL COMMENTS - FREE TEXT/NARRATIVE: Ms. Marinelli is a pleasant 30-year-old woman who now presents the ED with a headache that developed around 16:00 this afternoon. She states the pain is felt in her forehead and down her neck. She states that she vomited once en route to the ED, then once again once here. When asked, she stated that she might have some flashing lights, but she was not really sure. No wavy lines or blurry vision. No tingling, numbness, or weakness. She states that her headache is virtually identical to the one she had when last seen here in the ED on 07/28/2020. A CT of the head at that time was unremarkable. She states that she was diagnosed with a sinus infection, treated with antibiotics, which did not help her symptoms. The patient states that she took 200 mg of ibuprofen around 16:00, then 25 mg of oral diphenhydramine around 19:15, which did not help. Here in the ED, the patient is found to be hemodynamically stable, afebrile, saturating 99% on room air. Prior to 16:00 this afternoon, the patient denies having a recent fever, chills, sore throat, ear pain, nasal or sinus congestion, cough, dyspnea, chest pain, palpitations, nausea, vomiting, constipation, diarrhea, abdominal pain, urinary symptoms, recent weight gain or weight loss, recent bloody bowel movements or black bowel movements, recent joint aches, headaches, or rashes. The patient's PCP is Francisca Boateng NP. Her General Surgeon is Dr. Rosa Jiménez. She has not received an influenza vaccine this season, and declined an offer to receive 1 here in the ED. Headache Pain Score (Numeric/FACES): 10 - Related Data Allergies Allergy/AdvReac Type Severity Reaction Status Date / Time metoclopramide [From Reglan] AdvReac Severe Anxiety Verified 08/13/20 20:08 Home Meds: Home Meds Fluticasone Propionate [Flonase] 2 sprays NASBOTH DAILY #1 bottle 12/30/20 [Rx] Ondansetron [Zofran ODT] 1 tab PO Q8H PRN #10 tab.dis 08/13/20 [Rx] Past Medical History Endocrine/Metabolic History: Reports: Obesity/BMI 30+ - Past Surgical History GI Surgical History: Reports: Cholecystectomy (2012), Colonoscopy (x 1), EGD (x 1) Female Surgical History: Reports: Section (x 3), Tubal Ligation Social & Family History - Tobacco Use Tobacco Use Status *Q: Never Tobacco User - Caffeine Use Caffeine Use: Reports: Tea - Alcohol Use Alcohol Use History: No - Recreational Drug Use Recreational Drug Use: No - Living Situation & Occupation Living situation: Reports: Single, with Family Occupation: Unemployed ED ROS GENERAL - Review of Systems Review Of Systems: Comprehensive ROS is negative, except as noted in HPI. Neurological: Reports: Headache (gretchen leat once a month) - Physical Exam Exam: See Below Exam Limited By: No Limitations General Appearance: Alert, WD/WN, No Apparent Distress Eye Exam: Bilateral Eye: EOMI, Normal Inspection, PERRL Ears: Normal External Exam, Normal Canal, Hearing Grossly Normal, Normal TMs Nose: Normal Inspection, Normal Mucosa, No Blood Throat/Mouth: Normal Inspection, Normal Lips, Normal Teeth, Normal Gums, Normal Oropharynx, Normal Voice, No Airway Compromise Head Exam: Atraumatic, Normocephalic Neck: Normal Inspection, Supple, Non-Tender, Full Range of Motion Respiratory/Chest: No Respiratory Distress, Lungs Clear, Normal Breath Sounds, No Accessory Muscle Use Cardiovascular: Normal Peripheral Pulses, Regular Rate, Rhythm, No Edema, No Gallop, No JVD, No Murmur, No Rub GI/Abdominal: Normal Bowel Sounds, Soft, Non-Tender, No Organomegaly, No Distention, No Abnormal Bruit, No Mass Neuro Exam (Abbreviated): Alert, Oriented, CN II-XII Intact, Normal Cognition, No Motor/Sensory Deficits Back Exam: Normal Inspection, Full Range of Motion, NT Extremities: Normal Inspection, Normal Range of Motion, Normal Capillary Refill Psychiatric: Normal Affect Skin Exam: Warm, Dry, Intact, Normal Color, No Rash Course - Vital Signs Last Recorded V/S: Last Vital Signs Temp 35.8 C L 08/13/20 20:05 Pulse 84 08/13/20 20:05 Resp 18 08/13/20 20:05 BP 126/80 08/13/20 20:05 Pulse Ox 99 08/13/20 20:05 - Orders/Labs/Meds Meds: Medications Discontinued Medications Generic Name Dose Route Start Last Admin Trade Name eKvin PRN Reason Stop Dose Admin Diphenhydramine HCl 25 mg 08/13/20 20:39 08/13/20 20:52 Benadryl IVPUSH 08/13/20 20:40 25 mg ONETIME STA Administration Sodium Chloride 1,000 mls @ 999 mls/hr 08/13/20 20:39 08/13/20 20:51 Normal Saline IV 08/13/20 21:39 999 mls/hr ONETIME ONE Administration Ketorolac Tromethamine 30 mg 08/13/20 20:39 08/13/20 20:52 Toradol IVPUSH 08/13/20 20:40 30 mg ONETIME STA Administration Ondansetron HCl 4 mg 08/13/20 20:39 08/13/20 20:51 Zofran IVPUSH 08/13/20 20:40 4 mg ONETIME ONE Administration - Re-Assessments/Exams Free Text/Narrative Re-Assessment/Exam: 08/13/20 20:40 As above, the patient developed a headache felt in her forehead and down her neck around 16:00 this afternoon, essentially the same as the types of headaches that she gets at least once a month, and, specifically, the same as she had on 07/28/2020 when she was last seen here in the ED. A CT of the head at that time was unremarkable. Her physical examination and neurologic examination today are completely normal. The patient requested the same cocktail that she was given on 07/28/2020, which included IV fluid, IV Toradol, IV diphenhydramine, and IV Zofran. I have ordered the same, cutting the diphenhydramine down to 25 mg, since she already took 25 mg at home. 08/13/20 21:54 The patient states that she feels substantially better. I will discharge her home with a prescription for Zofran ODT. The patient asked about the possible causes of her headache. Her symptoms seem like a migraine, however, they are adequately treated with Toradol, diphenhydramine and Zofran, none of which are neuroleptics. It seems that her headache is most likely due to sinusitis or tension. Departure - Departure Time of Disposition: 21:54 Disposition: Home, Self-Care 01 Condition: Good Clinical Impression: Headache Qualifiers: Headache type: unspecified Headache chronicity pattern: unspecified pattern Intractability: not intractable Qualified Code(s): R51.9 - Headache, unspecified - Discharge Information *PRESCRIPTION DRUG MONITORING PROGRAM REVIEWED*: Not Applicable *COPY OF PRESCRIPTION DRUG MONITORING REPORT IN PATIENT JING: Not Applicable Referrals: Francisca Boateng NP [Primary Care Provider] - Diamond Bolton MD [Physician] - Forms: ED Department Discharge Additional Instructions: You were seen in the emergency room for a headache with nausea and vomiting. You were treated with IV fluid, IV pain medicine, and IV anti-nausea medicine, with significant improvement in your symptoms. We recommend that you stay adequately hydrated and get plenty of rest tonight in a dark, quiet place. A prescription for the anti-nausea medicine Zofran has been sent to the [facility], located at [address] [place] [address]. You may dissolve 1 tablet of Zofran on your tongue up to every 8 hours, as needed for nausea/vomiting. We recommend that you follow-up with your PCP, Francisca Boateng NP, to discuss further evaluation of your headaches, including the possibility of being referred to a headache specialist. If any other problems, please do not hesitate to return to the ER. Sepsis Event Note (ED) - Evaluation Sepsis Screening Result: No Definite Risk - Focused Exam Vital Signs: Vital Signs Temp Pulse Resp BP Pulse Ox 08/13/20 20:05 35.8 C L 84 18 126/80 99
== END 2020-08-13 22:05 | disposition home or self-care (01) ==
LOC: JD.ED 20:01
DX: R51.9 Headache, unspecified (principal); E66.9 Obesity, unspecified; Z68.31 Body mass index [BMI] 31.0-31.9, adult; Z88.8 Allergy status to other drugs, medicaments and biological substances; Z79.899 Other long term (current) drug therapy
CPT/HCPCS: 96374; 96375; 99283; J1200; J1885; J2405; J7030; 99284

== ENCOUNTER 2020-08-26 22:10 | Emergency (ER) | payer MEDICAID ==
[2020-08-26] MEDS ORDERED: Ondansetron 4 MG/2 ML SDV IVPUSH ONE (22:50)
[2020-08-26] MEDS ORDERED: LORazepam 2 MG/ML SDV IVPUSH STA (22:50)
[2020-08-26] MEDS ORDERED: Sodium Chloride 0.9% 1,000 ML IV ONE (22:50)
--- NOTE | 2020-08-26 22:56 | EDM.PDOC ---
ED HPI GENERAL MEDICAL PROBLEM - General Chief Complaint: General Stated Complaint: POST OP DIFFICULTY BREATHING, LEGS HURT Time Seen by Provider: 08/26/20 22:29 Source of Information: Reports: Patient, Significant Other (Boyfriend) History Limitations: Reports: No Limitations - History of Present Illness INITIAL COMMENTS - FREE TEXT/NARRATIVE: Ms. Marinelli is a very pleasant 30-year-old woman who now presents the ED with numerous symptoms that developed after she underwent an outpatient umbilical herniorrhaphy earlier today. She states that the surgery occurred around 9:30 or 10:00 this morning, and that she was discharged home around 13:30 with prescriptions for a stool softener, ibuprofen 600 mg, and [place]. She states that she started to feel somewhat confused around 14:00, right around the time she was being discharged. She then started to feel nauseated and clammy around 17:00, chest tightness with dyspnea around 20:45, tightness in her throat around 21:00, cramps felt in the back of both of her cramps around 21:30, then tightness felt in both of her wrists about the time she arrived to the ED. No prior similar symptoms, and, in particular, the patient denies similar symptoms following prior surgeries. The patient states that she had previously been prescribed an antibiotic, however, never filled it, and was not given a new prescription for 1 today. She has not taken any of the prescribed ibuprofen, but did take 1 tablet of the prescribed [place] around 19:30 tonight. She did not take any [id number] or home remedies to address any of her symptoms, specifically. Here in the ED, the patient's initial BP is found to be slightly elevated at 144/88, otherwise, she is hemodynamically stable, afebrile, saturating 98 to 100% on room air. She appears to be somewhat anxious. Prior to this afternoon, the patient denies having a recent fever, chills, sore throat, ear pain, nasal or sinus congestion, cough, dyspnea, chest pain, palpitations, nausea, vomiting, constipation, diarrhea, abdominal pain, urinary symptoms, recent weight gain or weight loss, recent bloody bowel movements or black bowel movements, recent joint aches, headaches, or rashes. The patient's PCP is Francisca Boateng NP. Her Surgeon is Dr. Diamond Bolton. She has not received an influenza vaccine this season, and declined an offer to receive one here in the ED. Bilateral Lower Leg Pain Score (Numeric/FACES): 4 - Related Data Allergies Allergy/AdvReac Type Severity Reaction Status Date / Time metoclopramide [From Reglan] AdvReac Severe Anxiety Verified 08/26/20 22:23 Home Meds: Home Meds Docusate Sodium [Stool Softener] 100 mg PO DAILY 08/26/20 [History] Hydrocodone/Acetaminophen [Hydrocodone-Acetamin 5-325 mg] 1 tab PO Q4H PRN 08/26/20 [History] Past Medical History Endocrine/Metabolic History: Reports: Obesity/BMI 30+ - Past Surgical History GI Surgical History: Reports: Cholecystectomy (2012), Colonoscopy (x 1), EGD (x 1), Hernia, Abdominal (umbilical, 08/26/2020) Female Surgical History: Reports: Section (x 3), Tubal Ligation Social & Family History - Tobacco Use Tobacco Use Status *Q: Never Tobacco User Second Hand Smoke Exposure: No - Caffeine Use Caffeine Use: Reports: Tea - Alcohol Use Alcohol Use History: No - Recreational Drug Use Recreational Drug Use: No - Living Situation & Occupation Living situation: Reports: Single, with Family Occupation: Unemployed ED ROS GENERAL - Review of Systems Review Of Systems: Comprehensive ROS is negative, except as noted in HPI. ED EXAM, GENERAL - Physical Exam Exam: See Below Exam Limited By: No Limitations General Appearance: Alert, WD/WN, Anxious Eye Exam: Bilateral Eye: EOMI, Normal Inspection Ears: Normal External Exam, Hearing Grossly Normal Nose: Normal Inspection Throat/Mouth: Normal Inspection, Normal Lips, Normal Voice, No Airway Compromise Head: Atraumatic, Normocephalic Neck: Normal Inspection, Full Range of Motion Respiratory/Chest: No Respiratory Distress, Lungs Clear, Normal Breath Sounds, No Accessory Muscle Use Cardiovascular: Normal Peripheral Pulses, Regular Rate, Rhythm, No Edema, No Gallop, No JVD, No Murmur, No Rub Peripheral Pulses: 3+: Radial (L), Radial (R) GI/Abdominal: Normal Bowel Sounds, Soft, No Organomegaly, No Distention, No Abnormal Bruit, No Mass, Tender (periIncisional only), Other (Laparoscopic wounds to the umbilicus + 2 to the LLQ, all C/D/I) Back Exam: Normal Inspection, Full Range of Motion, NT Extremities: Normal Inspection, Normal Range of Motion, No Pedal Edema, Normal Capillary Refill Neurological: Alert, Oriented, Normal Cognition, No Motor/Sensory Deficits Psychiatric: Anxious Skin Exam: Warm, Dry, Intact, Normal Color, No Rash #1 Interpretation EKG Date: 08/26/20 Time: 23:07 Rhythm: NSR Rate (Beats/Min): 84 [place]: Normal P-Wave: Enlarged (LAE) QRS: Normal ST-T: Normal QT: Normal Comparison: No Change (04/03/2020) Course - Vital Signs Last Recorded V/S: Last Vital Signs Temp 36.3 C 08/26/20 22:20 Pulse 99 08/26/20 22:20 Resp 20 08/26/20 22:20 BP 144/88 H 08/26/20 22:20 Pulse Ox 98 08/26/20 22:20 - Orders/Labs/Meds Orders: Active Orders 24 hr Category Date Time Status EKG Documentation Completion [RC] STAT Care 08/26/20 22:48 Active Chest 2V [CR] Stat Exams 08/26/20 22:48 Taken Labs: Laboratory Tests 08/26/20 08/26/20 08/26/20 Range/Units 22:55 22:58 22:58 WBC 9.62 (3.98-10.04) K/mm3 RBC 4.40 (3.98-5.22) M/mm3 Hgb 12.5 (11.2-15.7) gm/dl Hct 38.5 (34.1-44.9) % MCV 87.5 (79.4-94.8) fl MCH 28.4 (25.6-32.2) pg MCHC 32.5 (32.2-35.5) g/dl RDW Std Deviation 45.5 (36.4-46.3) fL Plt Count 345 (182-369) K/mm3 MPV 10.9 (9.4-12.3) fl Neutrophils % (Manual) 84 H (40-60) % Band Neutrophils % 0 (0-10) % Lymphocytes % (Manual) 12 L (20-40) % Atypical Lymphs % 0 % Monocytes % (Manual) 4 (2-10) % Eosinophils % (Manual) 0 L (0.7-5.8) % Basophils % (Manual) 0 L (0.1-1.2) Platelet Estimate Adequate RBC Morph Comment Normal Puncture Site Lt radial ABG pH 7.44 (7.35-7.45) ABG pCO2 33.2 L (35.0-45.0) mmHg ABG pO2 82.0 (80.0-100.0) mmHg ABG HCO3 21.9 L (22.0-26.0) meq/L ABG O2 Saturation 97.5 H (96.0-97.0) % ABG Base Excess -1.2 (-2-2.0) Michel Test Positive A-a Gradient 26 mmHg O2 Delivery Device Room air Oxygen Flow Rate 0.0 FiO2 21.00 (21.00-100.00) % Sodium 143 (136-145) mEq/L Potassium 3.6 (3.5-5.1) mEq/L Chloride 105 (98-107) mEq/L Carbon Dioxide 23 (21-32) mEq/L Anion Gap 18.6 H (5-15) BUN 7 (7-18) mg/dL Creatinine 0.9 (0.55-1.02) mg/dL Est Cr Clr Drug Dosing 80.75 mL/min Estimated GFR (MDRD) > 60 (>60) mL/min BUN/Creatinine Ratio 7.8 L (14-18) Glucose 133 H (74-106) mg/dL Calcium 9.5 (8.5-10.1) mg/dL Magnesium 1.8 (1.8-2.4) mg/dl Total Bilirubin 0.4 (0.2-1.0) mg/dL AST 29 (15-37) U/L ALT 49 (14-59) U/L Alkaline Phosphatase 91 (46-116) U/L Troponin I < 0.017 (0.00-0.056) ng/mL Total Protein 7.9 (6.4-8.2) g/dl Albumin 4.1 (3.4-5.0) g/dl Globulin 3.8 gm/dL Albumin/Globulin Ratio 1.1 (1-2) TSH 3rd Generation 0.499 (0.358-3.74) uIU/mL Urine Color (Yellow) Urine Appearance (Clear) Urine pH (5.0-8.0) Ur Specific [place] (1.005-1.030) Urine Protein (Negative) Urine Glucose (UA) (Negative) Urine Ketones (Negative) Urine Occult Blood (Negative) Urine Nitrite (Negative) Urine Bilirubin (Negative) Urine Urobilinogen (0.2-1.0) Ur Leukocyte Esterase (Negative) Urine RBC (0-5) /hpf Urine WBC (0-5) /hpf Ur Squamous Epith Cells (0-5) /hpf Urine Bacteria (FEW) /hpf Urine Mucus (FEW) /hpf Urine HCG, Qual (NEGATIVE) 08/27/20 08/27/20 Range/Units 00:09 00:09 WBC (3.98-10.04) K/mm3 RBC (3.98-5.22) M/mm3 Hgb (11.2-15.7) gm/dl Hct (34.1-44.9) % MCV (79.4-94.8) fl MCH (25.6-32.2) pg MCHC (32.2-35.5) g/dl RDW Std Deviation (36.4-46.3) fL Plt Count (182-369) K/mm3 MPV (9.4-12.3) fl Neutrophils % (Manual) (40-60) % Band Neutrophils % (0-10) % Lymphocytes % (Manual) (20-40) % Atypical Lymphs % % Monocytes % (Manual) (2-10) % Eosinophils % (Manual) (0.7-5.8) % Basophils % (Manual) (0.1-1.2) Platelet Estimate RBC Morph Comment Puncture Site ABG pH (7.35-7.45) ABG pCO2 (35.0-45.0) mmHg ABG pO2 (80.0-100.0) mmHg ABG HCO3 (22.0-26.0) meq/L ABG O2 Saturation (96.0-97.0) % ABG Base Excess (-2-2.0) Michel Test A-a Gradient mmHg O2 Delivery Device Oxygen Flow Rate FiO2 (21.00-100.00) % Sodium (136-145) mEq/L Potassium (3.5-5.1) mEq/L Chloride (98-107) mEq/L Carbon Dioxide (21-32) mEq/L Anion Gap (5-15) BUN (7-18) mg/dL Creatinine (0.55-1.02) mg/dL Est Cr Clr Drug Dosing mL/min Estimated GFR (MDRD) (>60) mL/min BUN/Creatinine Ratio (14-18) Glucose (74-106) mg/dL Calcium (8.5-10.1) mg/dL Magnesium (1.8-2.4) mg/dl Total Bilirubin (0.2-1.0) mg/dL AST (15-37) U/L ALT (14-59) U/L Alkaline Phosphatase (46-116) U/L Troponin I (0.00-0.056) ng/mL Total Protein (6.4-8.2) g/dl Albumin (3.4-5.0) g/dl Globulin gm/dL Albumin/Globulin Ratio (1-2) TSH 3rd Generation (0.358-3.74) uIU/mL Urine Color Yellow (Yellow) Urine Appearance Clear (Clear) Urine pH 7.5 (5.0-8.0) Ur Specific [place] 1.020 (1.005-1.030) Urine Protein Negative (Negative) Urine Glucose (UA) Negative (Negative) Urine Ketones Negative (Negative) Urine Occult Blood 1+ H (Negative) Urine Nitrite Negative (Negative) Urine Bilirubin Negative (Negative) Urine Urobilinogen 0.2 (0.2-1.0) Ur Leukocyte Esterase Negative (Negative) Urine RBC 0-5 (0-5) /hpf Urine WBC Not seen (0-5) /hpf Ur Squamous Epith Cells 5-10 H (0-5) /hpf Urine Bacteria Rare (FEW) /hpf Urine Mucus Not seen (FEW) /hpf Urine HCG, Qual Negative (NEGATIVE) Meds: Medications Discontinued Medications Generic Name Dose Route Start Last Admin Trade Name Freq PRN Reason Stop Dose Admin Sodium Chloride 1,000 mls @ 999 mls/hr 08/26/20 22:50 08/26/20 23:12 Normal Saline IV 08/26/20 23:50 999 mls/hr ONETIME ONE Administration Lorazepam 1 mg 08/26/20 22:50 08/26/20 23:13 Ativan IVPUSH 08/26/20 22:51 1 mg ONETIME STA Administration Ondansetron HCl 4 mg 08/26/20 22:50 08/26/20 23:12 Zofran IVPUSH 08/26/20 22:51 4 mg ONETIME ONE Administration - Re-Assessments/Exams Free Text/Narrative Re-Assessment/Exam: 08/26/20 22:52 As above, the patient developed some confusion, followed by nausea and clamminess, followed by chest tightness and dyspnea, followed by throat tightness, followed by oral posterior calf cramps, followed by a tightness sensation of both of her wrists, after undergoing an outpatient umbilical herniorrhaphy this morning. She appears to be quite anxious, and I note that her oxygen saturation is 98 to 100% on room air, suggesting some degree of hyperventilation. The cramps felt in her calves and the tightness felt in her wrist may represent carpopedal spasm. Her physical exam is remarkable for some rudy-incisional tenderness, otherwise, is completely unremarkable. I have ordered a work-up that includes several blood tests, an ABG, a urinalysis with urine test, a chest x-ray, and an ECG. In the meantime, the patient will be given both IV fluid and IV Zofran. She will be given IV lorazepam after the ABG has been obtained. Of note, I did not order a D-dimer, since: 1. She underwent surgery, therefore be expected to be elevated, and 2. A DVT is believed to take 24 to 48 hours to form, therefore a PE related to today's surgery would not be on the differential. 08/26/20 23:54 Two-view chest radiograph appears to be grossly normal. The cardiac silhouette is within normal limits. No pulmonary vascular congestion. No pleural effusions. No focal infiltrate. No pneumothorax. Formal read per the Radiologist pending. The patient's CBC is unremarkable. Her CMP is remarkable for an anion gap slightly elevated at 18.6, but with a bicarbonate normal at 23. She has mild hyperglycemia of 133, with the remainder of her CMP being unremarkable. Her magnesium level is within normal limits at 1.8. Her TSH is within normal limits at 0.499. Her troponin is undetectably low. Her ABG represents a primary respiratory alkalosis with concomitant mixed metabolic alkalosis and non-anion gap metabolic acidosis. The patient has not yet provided a urine sample. 08/27/20 00:29 The patient's urinalysis is unremarkable. Her urine test is negative. 08/27/20 00:35 Test results discussed with the patient and her boyfriend. Based on the above, I suspect that the patient's symptoms are due to anxiety, as evidenced by her ABG. Her primary respiratory alkalosis is synonymous with hyperventilation, with the metabolic alkalosis as a renal compensatory mechanism, and the (hyperchloremic) non-anion gap metabolic acidosis due to IV fluid given during her surgery this morning. Other etiologies for hyperventilation, including DKA, uremia, hypocalcemia, hypoglycemia, hyperthyroidism, liver failure, , severe anemia, sepsis, acute coronary event, sympathomimetic syndrome, pneumothorax, pneumonia, dysrhythmia, and CHF have all been ruled out. The patient appears to accept this explanation. Since this has never happened to the patient before, I am not recommending any long-term treatment, however, if her symptoms become recurrent or chronic, then I am recommending that she talk to her PCP about treatment options for anxiety. The patient is agreeable. Departure - Departure Time of Disposition: 00:36 Disposition: Home, Self-Care 01 Condition: Good Clinical Impression: Hyperventilation syndrome - Discharge Information *PRESCRIPTION DRUG MONITORING PROGRAM REVIEWED*: Not Applicable *COPY OF PRESCRIPTION DRUG MONITORING REPORT IN PATIENT JNIG: Not Applicable Referrals: Francisca Boateng NP [Primary Care Provider] - Diamond Bolton MD [Physician] - Forms: ED Department Discharge Additional Instructions: You were seen in the emergency room for feeling somewhat confused, followed by nausea and clamminess, followed by chest tightness with shortness of breath, followed by tightness in your throat, followed by cramps to the back of both of your calves, followed by tightness in your wrists. Work-up in the ER included several blood tests, an ABG, a urinalysis and urine test, a chest x-ray, and an ECG. Your ABG confirmed that you were hyperventilating. As discussed, hyperventilation is usually caused by anxiety, but can also be caused by a number of other medical conditions, such diabetic ketoacidosis, uremia, hypocalcemia, hypoglycemia, hyperthyroidism, liver failure, , severe anemia, sepsis, acute coronary event, sympathomimetic syndrome, pneumothorax, pneumonia, dysrhythmia, and CHF. In your case, however, all of those have been ruled out, therefore, by a process of elimination, the cause of your hyperventilation, and the symptoms that hyperventilation causes, is most likely due to anxiety. Since this is the first time that this is ever happened to you, we are not recommending any long-term treatment, however, if your symptoms persist or become chronic, we recommend that you follow-up with your PCP, Francisca Boateng NP, to discuss treatment options for anxiety. If any other problems, please do not hesitate to return to the ER. Sepsis Event Note (ED) - Evaluation Sepsis Screening Result: No Definite Risk - Focused Exam Vital Signs: Vital Signs Temp Pulse Resp BP Pulse Ox 08/26/20 22:20 36.3 C 99 20 144/88 H 98 - My Orders Last 24 Hours: My Active Orders 08/26/20 22:48 EKG Documentation Completion [RC] STAT Chest 2V [CR] Stat - Assessment/Plan Last 24 Hours: My Active Orders 08/26/20 22:48 EKG Documentation Completion [RC] STAT Chest 2V [CR] Stat
--- NOTE | 2020-08-27 08:08 | CR ---
Chest: 2 views of the chest are obtained. Comparison: Prior chest x-ray of 04/03/20. Heart size and mediastinum are normal. Lungs are clear with no acute parenchymal change. Very slight scoliosis is noted within the spine. Surgical clips are noted presumably from prior cholecystectomy. Impression: 1. Nothing acute is seen on 2 view chest x-ray. Diagnostic code #2
== END 2020-08-27 00:53 | disposition home or self-care (01) ==
LOC: JD.ED 22:10
DX: F45.8 Other somatoform disorders (principal); E66.9 Obesity, unspecified; Z88.8 Allergy status to other drugs, medicaments and biological substances; Z68.32 Body mass index [BMI] 32.0-32.9, adult
CPT/HCPCS: 36415; 36600; 71046; 80053; 81001; 81025; 82803; 83735; 84443; 84484; 85007; 85027; 93005; 96374; 96375; 99284; J2060; J2405; J7030; 93010

== ENCOUNTER 2020-10-07 09:44 | Emergency (ER) | payer MEDICAID ==
--- NOTE | 2020-10-07 12:33 | CR ---
Abdomen: Supine and upright views of the abdomen were obtained. Comparison: No prior abdominal x-ray, previous CT abdomen and pelvis study of 11/25/19. Surgical clips are seen from prior cholecystectomy. Phleboliths are noted within the pelvis. Bowel gas pattern is normal. Impression: 1. Findings as noted above. 2. Nothing acute is seen. Diagnostic code #1
--- NOTE | 2020-10-07 13:02 | EDM.PDOC ---
ED HPI GENERAL MEDICAL PROBLEM - General Chief Complaint: Abdominal Pain Stated Complaint: NIGHT SWEATS/CHILLS/PAIN & BULGE AT SURGICAL SITE Time Seen by Provider: 10/07/20 10:38 Source of Information: Reports: Patient, RN Notes Reviewed - History of Present Illness INITIAL COMMENTS - FREE TEXT/NARRATIVE: 30 yr old female comes in with concern about small bulging mass in umbilicus. she had surgery for something similar around 6 weeks ago. She states it was better and than it "came back". She had some LLQ pain yesterday. Also has had some chills and "feels ill" since yesterday afternoon. No cough, chest pain, sore throat or difficulty breathing. She saw Dr Cartwright General Surgeon yesterday, has an appointment to see Dr Portillo tomorrow. Left Lower Abdomen Pain Score (Numeric/FACES): 6 - Related Data Allergies Allergy/AdvReac Type Severity Reaction Status Date / Time metoclopramide [From Reglan] AdvReac Severe Anxiety Verified 10/07/20 09:56 Home Meds: Home Meds . 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: Neurological History: Reports: Headaches, Chronic Endocrine/Metabolic History: Reports: Obesity/BMI 30+ - Past Surgical History GI Surgical History: Reports: Cholecystectomy, Colonoscopy, EGD, Hernia, Abdominal Female Surgical History: Reports: Section, Tubal Ligation Social & Family History - Family History Family Medical History: No Pertinent Family History - Tobacco Use Tobacco Use Status *Q: Never Tobacco User - Caffeine Use Caffeine Use: Reports: None - Recreational Drug Use Recreational Drug Use: No - Living Situation & Occupation Living situation: Reports: Single, with Family Occupation: Unemployed ED ROS GENERAL - Review of Systems Review Of Systems: See Below Constitutional: Reports: Chills. Denies: Fever HEENT: Reports: No Symptoms Respiratory: Denies: Shortness of Breath, Cough Cardiovascular: Denies: Chest Pain GI/Abdominal: Reports: Abdominal Pain, Nausea (mild, gone). Denies: Diarrhea, Vomiting Musculoskeletal: Denies: Back Pain Skin: Reports: No Symptoms Neurological: Reports: No Symptoms ED EXAM, GI/ABD - Physical Exam Exam: See Below General Appearance: Alert, Anxious Head: Atraumatic Neck: Supple Respiratory/Chest: No Respiratory Distress Cardiovascular: Regular Rate, Rhythm GI/Abdominal Exam: Soft, Tender (minimal periumbilical tenderness, abd otherwise completely soft and nontender at time of exam), Other (1/2 cm soft round protrusion upper side of umbilicus, not inflamed, nl skin color). No: Guarding, Rebound Extremities: Normal Inspection Neurological: Alert, Oriented Skin Exam: Warm, Dry, Normal Color Course - Vital Signs Last Recorded V/S: Last Vital Signs Temp 97.6 F 10/07/20 09:52 Pulse 87 10/07/20 09:52 Resp 16 10/07/20 09:52 BP 134/94 H 10/07/20 09:52 Pulse Ox 98 10/07/20 09:52 - Orders/Labs/Meds Orders: Active Orders 24 hr Category Date Time Status CORONAVIRUS COVID-19 PCR [facility] Stat Lab 10/07/20 10:56 Received Labs: Laboratory Tests 10/07/20 10/07/20 Range/Units 11:12 11:12 WBC 7.28 (3.98-10.04) K/mm3 RBC 4.53 (3.98-5.22) M/mm3 Hgb 12.9 (11.2-15.7) gm/dl Hct 39.9 (34.1-44.9) % MCV 88.1 (79.4-94.8) fl MCH 28.5 (25.6-32.2) pg MCHC 32.3 (32.2-35.5) g/dl RDW Std Deviation 45.3 (36.4-46.3) fL Plt Count 347 (182-369) K/mm3 MPV 11.2 (9.4-12.3) fl Neut % (Auto) 54.9 (34.0-71.1) % Lymph % (Auto) 35.0 (19.3-51.7) % [place] % (Auto) 6.6 (4.7-12.5) % Eos % (Auto) 2.7 (0.7-5.8) Baso % (Auto) 0.5 (0.1-1.2) % Neut # (Auto) 3.99 (1.56-6.13) K/mm3 Lymph # (Auto) 2.55 (1.18-3.74) K/mm3 [place] # (Auto) 0.48 H (0.24-0.36) K/mm3 Eos # (Auto) 0.20 (0.04-0.36) K/mm3 Baso # (Auto) 0.04 (0.01-0.08) K/mm3 Sodium 142 (136-145) mEq/L Potassium 3.9 (3.5-5.1) mEq/L Chloride 105 (98-107) mEq/L Carbon Dioxide 27 (21-32) mEq/L Anion Gap 13.9 (5-15) BUN 9 (7-18) mg/dL Creatinine 0.9 (0.55-1.02) mg/dL Est Cr Clr Drug Dosing 80.75 mL/min Estimated GFR (MDRD) > 60 (>60) mL/min BUN/Creatinine Ratio 10.0 L (14-18) Glucose 108 H (74-106) mg/dL Calcium 9.2 (8.5-10.1) mg/dL Total Bilirubin 0.5 (0.2-1.0) mg/dL AST 12 L (15-37) U/L ALT 30 (14-59) U/L Alkaline Phosphatase 97 (46-116) U/L Total Protein 7.7 (6.4-8.2) g/dl Albumin 4.0 (3.4-5.0) g/dl Globulin 3.7 gm/dL Albumin/Globulin Ratio 1.1 (1-2) - Re-Assessments/Exams Free Text/Narrative Re-Assessment/Exam: 10/07/20 17:18 WBC normal, flat and upright abd nl. Have done a covid screen. Discharge instr. as documented. Departure - Departure Time of Disposition: 13:00 Disposition: Home, Self-Care 01 Condition: Fair Clinical Impression: Abdominal pain Qualifiers: Abdominal location: periumbilical Qualified Code(s): R10.33 - Periumbilical pain - Discharge Information Instructions: Abdominal Pain, Adult, [id number] Referrals: Francisca Boateng NP [Primary Care Provider] - Forms: ED Department Discharge Additional Instructions: Your WBC, chemistries today are normal. Your X rays also are normal. See Dr Portillo tomorrow morning as planned. Bring your discharge papers with you which should have your printed lab values for that appointment. Sepsis Event Note (ED) - Evaluation Sepsis Screening Result: No Definite Risk - Focused Exam Vital Signs: Vital Signs Temp Pulse Resp BP Pulse Ox 10/07/20 09:52 97.6 F 87 16 134/94 H 98 - My Orders Last 24 Hours: My Active Orders 10/07/20 10:56 CORONAVIRUS COVID-19 PCR [facility] Stat - Assessment/Plan Last 24 Hours: My Active Orders 10/07/20 10:56 CORONAVIRUS COVID-19 PCR [facility] Stat
== END 2020-10-07 13:10 | disposition home or self-care (01) ==
LOC: JD.ED 09:44
DX: R10.33 Periumbilical pain (principal); E66.9 Obesity, unspecified; Z20.822 Contact with and (suspected) exposure to COVID-19; Z88.8 Allergy status to other drugs, medicaments and biological substances
CPT/HCPCS: 36415; 74019; 74019-26; 80053; 85025; 99282; 99284-25; U0002

== ENCOUNTER 2021-01-13 05:08 | Emergency (ER) | payer MEDICAID ==
[2021-01-13] MEDS ORDERED: Ondansetron 4 MG/2 ML SDV IVPUSH ONE ×2 (05:42→08:01)
[2021-01-13] MEDS ORDERED: HYDROmorphone 1 MG/ML Syringe IVPUSH STA (05:42)
--- NOTE | 2021-01-13 05:44 | EDM.PDOC ---
ED HPI GENERAL MEDICAL PROBLEM - General Chief Complaint: Abdominal Pain Stated Complaint: SIDE PAIN Time Seen by Provider: 01/13/21 05:29 Source of Information: Reports: Patient History Limitations: Reports: No Limitations - History of Present Illness INITIAL COMMENTS - FREE TEXT/NARRATIVE: Ms. Marinelli is a pleasant 30-year-old woman who now presents the ED stating that she developed left lower quadrant pain this past 01/11/2021, along with some nausea. She is unable to describe the character of the pain, and is unable to say whether it is constant, waxing and waning, or coming and going. She states that her pain is made worse if she sits upright. No associated fever, nausea, vomiting, constipation, diarrhea, or urinary symptoms. The patient has not taken any aijo-bxi-findhad or home remedies since the onset of her symptoms. The patient states that she had similar symptoms about 2 months ago, and was seen in this ED for it. Review of prior medical records finds that the patient was seen in this ED on 10/07/2020 with a complaint at that time of a bulging umbilicus, although she mentioned that she had some left lower quadrant discomfort, as well. Her LMP was 12/18/2020. Here in the ED, the patient is found to be hemodynamically stable, afebrile, saturating 97% on room air. She appears to be slightly anxious, but is in no acute distress. Prior to Sunday, the patient denies having a recent fever, chills, sore throat, ear pain, nasal or sinus congestion, cough, dyspnea, chest pain, palpitations, nausea, vomiting, constipation, diarrhea, abdominal pain, urinary symptoms, recent weight gain or weight loss, recent bloody bowel movements or black bowel movements, recent joint aches, headaches, or rashes. The patient's PCP is Francisca Boateng NP. Her Surgeon is Dr. Diamond Bolton. Left Abdominal Pain Score (Numeric/FACES): 10 - Related Data Allergies Allergy/AdvReac Type Severity Reaction Status Date / Time metoclopramide [From Reglan] AdvReac Intermediate Anxiety Verified 10/08/20 11:47 Home Meds: Home Meds Ondansetron [Zofran ODT] 1 tab PO Q8H PRN #10 tab.dis 01/13/21 [Rx] Past Medical History Endocrine/Metabolic History: Reports: Obesity/BMI 30+ - Past Surgical History GI Surgical History: Reports: Cholecystectomy (2012), Colonoscopy (x 1), EGD (x 1), Hernia, Abdominal (umbilical, 08/26/2020) Female Surgical History: Reports: Section (x 3), Tubal Ligation Social & Family History - Tobacco Use Tobacco Use Status *Q: Never Tobacco User - Caffeine Use Caffeine Use: Reports: None - Alcohol Use Alcohol Use History: No - Recreational Drug Use Recreational Drug Use: No - Living Situation & Occupation Living situation: Reports: Single, with Family Occupation: Unemployed ED ROS GENERAL - Review of Systems Review Of Systems: Comprehensive ROS is negative, except as noted in HPI. ED EXAM, GI/ABD - Physical Exam Exam: See Below Exam Limited By: No Limitations General Appearance: Alert, WD/WN, No Apparent Distress Eyes: Bilateral: Normal Appearance, EOMI Ears: Normal External Exam, Hearing Grossly Normal Nose: Normal Inspection Throat/Mouth: Normal Inspection, Normal Lips, Normal Voice, No Airway Compromise Head: Atraumatic, Normocephalic Neck: Normal Inspection, Full Range of Motion Respiratory/Chest: No Respiratory Distress, Lungs Clear, Normal Breath Sounds, No Accessory Muscle Use Cardiovascular: Normal Peripheral Pulses, Regular Rate, Rhythm, No Edema, No Gallop, No JVD, No Murmur, No Rub GI/Abdominal Exam: Normal Bowel Sounds, Soft, No Organomegaly, No Distention, No Abnormal Bruit, No Mass, Tender (Left lower quadrant only. Nontender elsewhere.) Back Exam: Normal Inspection, Full Range of Motion. No: CVA Tenderness (L), CVA Tenderness (R) Extremities: Normal Inspection, Normal Range of Motion, No Pedal Edema, Normal Capillary Refill Neurological: Alert, Oriented, Normal Cognition, No Motor/Sensory Deficits Psychiatric: Normal Affect Skin Exam: Warm, Dry, Intact, Normal Color, No Rash Course - Vital Signs Last Recorded V/S: Last Vital Signs Temp 36.6 C 01/13/21 05:22 Pulse 79 01/13/21 05:22 Resp 18 01/13/21 05:22 BP 115/68 01/13/21 05:22 Pulse Ox 97 01/13/21 05:22 - Orders/Labs/Meds Orders: Active Orders 24 hr Category Date Time Status Sodium Chloride 0.9% [Normal Saline] 1,000 ml Med 01/13/21 05:45 Active IV ASDIRECTED Sodium Chloride 0.9% [Saline Flush] Med 01/13/21 07:10 Active 10 ml FLUSH ONETIME PRN Medication Orders Sodium Chloride (Normal Saline) 1,000 mls @ 150 mls/hr IV ASDIRECTED FAZAL Last Admin: 01/13/21 06:07 Dose: 150 mls/hr Documented by: BRAD Sodium Chloride (Sodium Chloride 0.9% 10 Ml Syringe) 10 ml FLUSH ONETIME PRN PRN Reason: Keep Vein Open Last Admin: 01/13/21 07:23 Dose: 10 ml Documented by: DEBO Labs: Laboratory Tests 01/13/21 01/13/21 01/13/21 Range/Units 05:55 05:55 06:38 WBC 8.19 (3.98-10.04) K/mm3 RBC 4.83 (3.98-5.22) M/mm3 Hgb 14.2 (11.2-15.7) gm/dl Hct 42.4 (34.1-44.9) % MCV 87.8 (79.4-94.8) fl MCH 29.4 (25.6-32.2) pg MCHC 33.5 (32.2-35.5) g/dl RDW Std Deviation 44.4 (36.4-46.3) fL Plt Count 334 (182-369) K/mm3 MPV 11.2 (9.4-12.3) fl Neutrophils % (Manual) 71 H (40-60) % Band Neutrophils % 5 (0-10) % Lymphocytes % (Manual) 19 L (20-40) % Atypical Lymphs % 0 % Monocytes % (Manual) 4 (2-10) % Eosinophils % (Manual) 1 (0.7-5.8) % Basophils % (Manual) 0 L (0.1-1.2) Platelet Estimate Adequate Plt Morphology Comment See note RBC Morph Comment Normal Sodium 141 (136-145) mEq/L Potassium 3.6 (3.5-5.1) mEq/L Chloride 102 (98-107) mEq/L Carbon Dioxide 26 (21-32) mEq/L Anion Gap 16.6 H (5-15) BUN 10 (7-18) mg/dL Creatinine 0.9 (0.55-1.02) mg/dL Est Cr Clr Drug Dosing 80.75 mL/min Estimated GFR (MDRD) > 60 (>60) mL/min BUN/Creatinine Ratio 11.1 L (14-18) Glucose 124 H (70-99) mg/dL Calcium 9.6 (8.5-10.1) mg/dL Magnesium 2.0 (1.8-2.4) mg/dL Total Bilirubin 0.6 (0.2-1.0) mg/dL AST 13 L (15-37) U/L ALT 25 (14-59) U/L Alkaline Phosphatase 105 (46-116) U/L Total Protein 8.4 H (6.4-8.2) g/dl Albumin 4.5 (3.4-5.0) g/dl Globulin 3.9 gm/dL Albumin/Globulin Ratio 1.2 (1-2) Urine Color Yellow (Yellow) Urine Appearance Clear (Clear) Urine pH 7.0 (5.0-8.0) Ur Specific [place] 1.020 (1.005-1.030) Urine Protein Negative (Negative) Urine Glucose (UA) Negative (Negative) Urine Ketones Negative (Negative) Urine Occult Blood Trace-intact H (Negative) Urine Nitrite Negative (Negative) Urine Bilirubin Negative (Negative) Urine Urobilinogen 1.0 (0.2-1.0) Ur Leukocyte Esterase Negative (Negative) Urine RBC 0-5 (0-5) /hpf Urine WBC Not seen (0-5) /hpf Ur Squamous Epith Cells 0-5 (0-5) /hpf Urine Bacteria Few (FEW) /hpf Urine Mucus Not seen (FEW) /hpf Urine HCG, Qual (NEGATIVE) 01/13/21 Range/Units 06:38 WBC (3.98-10.04) K/mm3 RBC (3.98-5.22) M/mm3 Hgb (11.2-15.7) gm/dl Hct (34.1-44.9) % MCV (79.4-94.8) fl MCH (25.6-32.2) pg MCHC (32.2-35.5) g/dl RDW Std Deviation (36.4-46.3) fL Plt Count (182-369) K/mm3 MPV (9.4-12.3) fl Neutrophils % (Manual) (40-60) % Band Neutrophils % (0-10) % Lymphocytes % (Manual) (20-40) % Atypical Lymphs % % Monocytes % (Manual) (2-10) % Eosinophils % (Manual) (0.7-5.8) % Basophils % (Manual) (0.1-1.2) Platelet Estimate Plt Morphology Comment RBC Morph Comment Sodium (136-145) mEq/L Potassium (3.5-5.1) mEq/L Chloride (98-107) mEq/L Carbon Dioxide (21-32) mEq/L Anion Gap (5-15) BUN (7-18) mg/dL Creatinine (0.55-1.02) mg/dL Est Cr Clr Drug Dosing mL/min Estimated GFR (MDRD) (>60) mL/min BUN/Creatinine Ratio (14-18) Glucose (70-99) mg/dL Calcium (8.5-10.1) mg/dL Magnesium (1.8-2.4) mg/dL Total Bilirubin (0.2-1.0) mg/dL AST (15-37) U/L ALT (14-59) U/L Alkaline Phosphatase (46-116) U/L Total Protein (6.4-8.2) g/dl Albumin (3.4-5.0) g/dl Globulin gm/dL Albumin/Globulin Ratio (1-2) Urine Color (Yellow) Urine Appearance (Clear) Urine pH (5.0-8.0) Ur Specific [place] (1.005-1.030) Urine Protein (Negative) Urine Glucose (UA) (Negative) Urine Ketones (Negative) Urine Occult Blood (Negative) Urine Nitrite (Negative) Urine Bilirubin (Negative) Urine Urobilinogen (0.2-1.0) Ur Leukocyte Esterase (Negative) Urine RBC (0-5) /hpf Urine WBC (0-5) /hpf Ur Squamous Epith Cells (0-5) /hpf Urine Bacteria (FEW) /hpf Urine Mucus (FEW) /hpf Urine HCG, Qual Negative (NEGATIVE) Meds: Medications Generic Name Dose Route Start Last Admin Trade Name Freq PRN Reason Stop Dose Admin Sodium Chloride 1,000 mls @ 150 mls/hr 01/13/21 05:45 01/13/21 06:07 Normal Saline IV 150 mls/hr ASDIRECTED FAZAL Administration Sodium Chloride 10 ml 01/13/21 07:10 01/13/21 07:23 Sodium Chloride 0.9% 10 Ml Syringe FLUSH 10 ml ONETIME PRN Administration Keep Vein Open Discontinued Medications Generic Name Dose Route Start Last Admin Trade Name Freq PRN Reason Stop Dose Admin Diatrizoate Meglum/Diatrizoate Sod 40 ml 01/13/21 07:10 01/13/21 07:22 Diatrizoate Meglumine/Diatrizoate Sodium 37% 120 Ml Bottle PO 01/13/21 07:11 45 ml ONETIME ONE Administration Hydromorphone HCl 0.5 mg 01/13/21 05:42 01/13/21 06:07 Hydromorphone 1 Mg/Ml Syringe IVPUSH 01/13/21 05:43 0.5 mg ONETIME STA Administration Hydromorphone HCl 0.5 mg 01/13/21 08:01 01/13/21 08:20 Hydromorphone 0.5 Mg/0.5 Ml Syringe IVPUSH 01/13/21 08:02 0.5 mg ONETIME ONE Administration Iopamidol 100 ml 01/13/21 07:10 01/13/21 07:22 Iopamidol 612 Mg/Ml 100 Ml Bottle IVPUSH 01/13/21 07:11 100 ml ONETIME ONE Administration Ondansetron HCl 4 mg 01/13/21 05:42 01/13/21 06:07 Ondansetron 4 Mg/2 Ml Sdv IVPUSH 01/13/21 05:43 4 mg ONETIME ONE Administration Ondansetron HCl 4 mg 01/13/21 08:01 01/13/21 08:20 Ondansetron 4 Mg/2 Ml Sdv IVPUSH 01/13/21 08:02 4 mg ONETIME ONE Administration - Re-Assessments/Exams Free Text/Narrative Re-Assessment/Exam: 01/13/21 05:44 As above, the patient believes that she developed left lower quadrant abdominal pain with nausea 2 days ago, however, she is unable to describe its character, or whether it is constant or waxing and waning. She states that her pain is worse with sitting. On examination, she has some tenderness to the left lower quadrant, although her abdomen is soft with normoactive bowel sounds. I suspect that the patient is suffering from an ovarian cyst, however, diverticulitis is a possibility, therefore I have ordered a work-up that includes several blood tests, urinalysis by clean-catch, a urine test, and a CT of the abdomen and pelvis with oral and IV contrast. In the meantime, the patient will be treated with IV Dilaudid, IV Zofran, and IV fluid. 01/13/21 07:52 The patient's CBC is unremarkable. Her CMP is remarkable for an anion gap slightly elevated at 16.6, with a bicarbonate normal at 26, and slight hyperglycemia of 124, with the remainder of her CMP being unremarkable. Her magnesium level is within normal limits at 2.0. Her urinalysis is unremarkable. Her urine test is negative. 01/13/21 08:20 CT of the abdomen and pelvis with oral and IV contrast is read by [facility] as "On balance, unremarkable. No acute disease or suspicious finding." 01/13/21 08:39 Test results discussed with the patient and her mother (now present). As above, today's work-up is completely unremarkable, and does not explain the cause of her pain. If her pain persists, I would like her to follow-up with Dr. Reed, for further evaluation. The patient requested a prescription for Zofran. Departure - Departure Time of Disposition: 08:40 Disposition: Home, Self-Care 01 Condition: Good Clinical Impression: Left lower quadrant abdominal pain of unknown etiology - Discharge Information *PRESCRIPTION DRUG MONITORING PROGRAM REVIEWED*: Not Applicable *COPY OF PRESCRIPTION DRUG MONITORING REPORT IN PATIENT JING: Not Applicable Referrals: Francisca Boateng NP [Primary Care Provider] - Diamond Bolton MD [Physician] - Lesia Reed MD [Physician] - Forms: ED Department Discharge Additional Instructions: You were seen in the emergency room after developing lower left abdominal pain and nausea on Sunday night. Work-up in the ER included several blood tests, a urinalysis, a urine test, and a CT of your abdomen and pelvis with oral and IV contrast. Your blood sugar was found to be slightly elevated at 124, otherwise, the remainder of your work-up was completely normal, and does not explain the cause of your pain. We recommend that you take [id number] ibuprofen, 3 tablets (600 mg) up to every 8 hours, with food, as needed for discomfort. A prescription for the anti-nausea medicine Zofran has been sent to the [facility], located at [address] [place] [address]. You may dissolve 1 tablet of Zofran on your tongue up to every 8 hours, as needed for nausea/vomiting. If your symptoms persist, please follow-up with the [facility] Dr. Lesia Reed, for further evaluation. If any other problems, please do not hesitate to return to the ER. Sepsis Event Note (ED) - Evaluation Sepsis Screening Result: No Definite Risk - Focused Exam Vital Signs: Vital Signs Temp Pulse Resp BP Pulse Ox 01/13/21 05:22 36.6 C 79 18 115/68 97 - My Orders Last 24 Hours: My Active Orders 01/13/21 05:45 Sodium Chloride 0.9% [Normal Saline] 1,000 ml IV ASDIRECTED 01/13/21 07:10 Sodium Chloride 0.9% [Saline Flush] 10 ml FLUSH ONETIME PRN - Assessment/Plan Last 24 Hours: My Active Orders 01/13/21 05:45 Sodium Chloride 0.9% [Normal Saline] 1,000 ml IV ASDIRECTED 01/13/21 07:10 Sodium Chloride 0.9% [Saline Flush] 10 ml FLUSH ONETIME PRN
[2021-01-13] MEDS ORDERED: Sodium Chloride 0.9% 1,000 ML IV SCH (05:45)
[2021-01-13] MEDS ORDERED: Sodium Chloride 0.9% 10 ML Syringe FLUSH PRN (07:10)
[2021-01-13] MEDS ORDERED: Iopamidol 612 MG/ML 100 ML Bottle IVPUSH ONE (07:10)
[2021-01-13] MEDS ORDERED: Diatrizoate Meglumine/Diatrizoate Sodium 37% 120 ML Bottle PO ONE (07:10)
[2021-01-13] MEDS ORDERED: HYDROmorphone 0.5 MG/0.5 ML Syringe IVPUSH ONE (08:01)
--- NOTE | 2021-01-13 08:26 | CT ---
CT abdomen and pelvis Technique: Multiple axial sections were obtained from slightly below the top of the liver inferiorly through the pubic symphysis. Intravenous and oral contrast were utilized. Delayed images were also obtained through the bladder. Reconstructed coronal and sagittal images were obtained. Comparison: Prior CT abdomen and pelvis exam on 11/25/19. Findings: Visualized lung bases show nothing acute. Visualized portions of the liver show no focal abnormality. Surgical clips are seen from prior cholecystectomy. Pancreas shows no acute abnormality. Spleen size is normal. Kidneys show symmetric contrast enhancement with no hydronephrosis or discrete mass. Two ureters are noted on the noncontrast study coming from the right kidney which are uncertain as to their point of joining prior to the bladder. Ureters show no dilatation or abnormal calcifications. Abdominal aorta shows no aneurysm. No retroperitoneal adenopathy or mesenteric abnormalities are seen. Appendix is seen which is normal. No pelvic mass or adenopathy is seen. No free fluid or inflammatory change is seen. Delayed images show contrast within the left ureter and bladder. On delayed images there are two left ureters being seen. These most likely join close to the UVJ. No bowel dilatation is seen. Bone window settings were reviewed which show no acute osseous finding. Impression: 1. Previous cholecystectomy. 2. Nothing acute is seen on CT study of the abdomen and pelvis. Diagnostic code #2 I agree with preliminary report from [facility], finalized on 01/13/21, 9:17 AM CDT, code 1
== END 2021-01-13 08:57 | disposition home or self-care (01) ==
LOC: JD.ED 05:08
DX: R10.32 Left lower quadrant pain (principal); E66.9 Obesity, unspecified; Z68.30 Body mass index [BMI] 30.0-30.9, adult; Z88.8 Allergy status to other drugs, medicaments and biological substances
CPT/HCPCS: 36415; 74177; 80053; 81001; 81025; 83735; 85007; 85027; 96374; 96375; 96376; 99284; J1170; J2405; J7030; Q9963; Q9967

== ENCOUNTER 2021-05-03 07:53 | Emergency (ER) | payer MEDICAID ==
[2021-05-03] MEDS ORDERED: Ibuprofen 600 MG Tab PO ONE (08:22)
[2021-05-03] MEDS ORDERED: Amoxicillin/Clavulanate K 875-125 MG Tab PO ONE (08:22)
--- NOTE | 2021-05-03 08:33 | EDM.PDOC ---
ED HPI GENERAL MEDICAL PROBLEM - General Chief Complaint: General Stated Complaint: TOOTH PAIN Time Seen by Provider: 05/03/21 08:03 Source of Information: Reports: Patient, RN Notes Reviewed History Limitations: Reports: No Limitations - History of Present Illness INITIAL COMMENTS - FREE TEXT/NARRATIVE: Pt is a 30 year old female presenting to the ER with c/o pain and head pressure. She reports that she had her lower wisdom teeth removed 2 weeks ago. She continues to experience pain and feels that she likely has dry socket. She was prescribed Amoxicillin after her surgery but states that she only took it for a couple days as it was giving her a yeast infection. She did not notify her oral surgeon that she stopped taking this medication. She was prescribed Tylenol #3 for pain and ran out yesterday. She has been taking additional Tylenol as well. Reports that she took aproximately 6000 mg yesterday. She woke up during the night last evening and reports that she was sweating and had chills. She called her oral surgeon and he will see her later today or tomorrow morning. She also c/o sinus pain and pressure since of last week. Denies nausea, vomiting, or diarrhea. 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: Neurological History: Reports: Headaches, Chronic Endocrine/Metabolic History: Reports: Obesity/BMI 30+ - Past Surgical History HEENT Surgical History: Reports: Oral Surgery GI Surgical History: Reports: Cholecystectomy, Colonoscopy, EGD, Hernia, Abdominal Female Surgical History: Reports: Section, Tubal Ligation Social & Family History - Family History Family Medical History: No Pertinent Family History - Tobacco Use Tobacco Use Status *Q: Never Tobacco User - Caffeine Use Caffeine Use: Reports: Soda - Recreational Drug Use Recreational Drug Use: No - Living Situation & Occupation Living situation: Reports: Single, with Family Occupation: Unemployed ED ROS GENERAL - Review of Systems Review Of Systems: Comprehensive ROS is negative, except as noted in HPI. ED EXAM, GENERAL - Physical Exam Exam: See Below Exam Limited By: No Limitations General Appearance: Alert, WD/WN, Anxious Ears: Normal External Exam, Normal Canal, Hearing Grossly Normal, Normal TMs Throat/Mouth: Other (visible open sockets to bilateral posterior jaw. No redness or erythema. Area is tender to palpation. ) Neck: Normal Inspection, Supple, Non-Tender, Full Range of Motion Respiratory/Chest: No Respiratory Distress, Lungs Clear, Normal Breath Sounds, No Accessory Muscle Use, Chest Non-Tender Cardiovascular: Normal Peripheral Pulses, Regular Rate, Rhythm, No Edema, No Gallop, No JVD, No Murmur, No Rub Neurological: Alert, Oriented, CN II-XII Intact, Normal Cognition, Normal Gait, Normal Reflexes, No Motor/Sensory Deficits Psychiatric: Normal Affect, Normal Mood Skin Exam: Warm, Dry, Intact, Normal Color, No Rash Course - Vital Signs Last Recorded V/S: Last Vital Signs Temp 97.9 F 05/03/21 08:01 Pulse 51 L 05/03/21 08:01 Resp 16 05/03/21 08:01 BP 149/71 H 05/03/21 08:01 Pulse Ox 99 05/03/21 08:01 - Orders/Labs/Meds Meds: Medications Discontinued Medications Generic Name Dose Route Start Last Admin Trade Name Kevin PRN Reason Stop Dose Admin Amoxicillin/Clavulanate Potassium 1 tab 05/03/21 08:22 05/03/21 09:05 Amoxicillin/Clavulanate K 875-125 Mg Tab PO 05/03/21 08:23 1 tab ONETIME ONE Administration Ibuprofen 600 mg 05/03/21 08:22 05/03/21 09:05 Ibuprofen 600 Mg Tab PO 05/03/21 08:23 600 mg ONETIME ONE Administration - Re-Assessments/Exams Free Text/Narrative Re-Assessment/Exam: Patient is a 30-year-old female presenting to the emergency department with complaints of pain and head pressure. She had wisdom teeth removed 2 weeks ago and has been having ongoing pain. She contacted her oral surgeon and plans to see him either later today or tomorrow. She was on amoxicillin, however she stopped taking it because she states it gave her yeast infection. Patient will be started on Augmentin. I will write prescription for Diflucan should the symptoms return. Discussed that she should not take any additional Tylenol aside from what is in the hydrocodone with Tylenol that I going to prescribe. Recommend routine ibuprofen. Follow-up with oral surgeon as planned. Discharge instructions as documented. 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 You have been started on Augmentin which is antibiotic. First dose of this was given in ER. Recommend routine ibuprofen. For pain not relieved by this, a prescription for hydrocodone with Tylenol has been provided. Do not take additional Tylenol as you have been taking large amounts already. A prescription for Diflucan has also been provided. Should you develop symptoms of yeast infection again, take this medication. Follow-up with oral surgeon as soon as possible. Return to ER as needed. Sepsis Event Note (ED) - Evaluation Sepsis Screening Result: No Definite Risk
== END 2021-05-03 09:25 | disposition home or self-care (01) ==
LOC: JD.ED 07:53
DX: K08.89 Other specified disorders of teeth and supporting structures (principal); Z88.8 Allergy status to other drugs, medicaments and biological substances; Z90.49 Acquired absence of other specified parts of digestive tract
CPT/HCPCS: 99282; A9270

== ENCOUNTER 2021-08-21 12:27 | Emergency (ER) | payer MEDICAID ==
[2021-08-21] MEDS ORDERED: Sodium Chloride 0.9% 10 ML Syringe FLUSH PRN (13:17)
[2021-08-21] MEDS ORDERED: HYDROmorphone 1 MG/ML Syringe IVPUSH ONE (13:18)
[2021-08-21] MEDS ORDERED: Sodium Chloride 0.9% 1,000 ML IV SCH (13:30)
== END 2021-08-21 15:40 | disposition home or self-care (01) ==
LOC: JD.ED 12:27
DX: S29.012A Strain of muscle and tendon of back wall of thorax, initial encounter (principal); E66.9 Obesity, unspecified; Z68.37 Body mass index [BMI] 37.0-37.9, adult; Z88.8 Allergy status to other drugs, medicaments and biological substances
CPT/HCPCS: 36415; 71046; 80053; 81001; 85025; 85379; 96374; 99283; J1170; J7030

== ENCOUNTER 2021-09-01 20:20 | Emergency (ER) | payer MEDICAID ==
[2021-09-01] MEDS ORDERED: Sodium Chloride 0.9% 1,000 ML IV STA (21:37)
[2021-09-01] MEDS ORDERED: Sodium Chloride 0.9% 10 ML Syringe FLUSH PRN (21:37)
[2021-09-01] MEDS ORDERED: Ketorolac 30 MG/ML SDV IVPUSH ONE (21:37)
[2021-09-01] MEDS ORDERED: Ondansetron 4 MG/2 ML SDV IVPUSH ONE (21:37)
[2021-09-01] MEDS ORDERED: Oseltamivir 75 MG Cap PO ONE (21:40)
== END 2021-09-01 23:10 | disposition home or self-care (01) ==
LOC: JD.ED 20:20
DX: B34.9 Viral infection, unspecified (principal); E66.9 Obesity, unspecified; Z68.30 Body mass index [BMI] 30.0-30.9, adult; Z88.8 Allergy status to other drugs, medicaments and biological substances
CPT/HCPCS: 36415; 80053; 81001; 85025; 86140; 96374; 96375; 99283; A9270; J1885; J2405; J7030; 99284

== ENCOUNTER 2021-10-08 17:52 | Emergency (ER) | payer MEDICAID ==
[2021-10-08] MEDS ORDERED: Acetaminophen/oxyCODONE 325-5 MG Tab PO ONE (18:12)
== END 2021-10-08 18:33 | disposition home or self-care (01) ==
LOC: JD.ED 17:52
DX: B07.0 Plantar wart (principal); E66.9 Obesity, unspecified; Z68.30 Body mass index [BMI] 30.0-30.9, adult
CPT/HCPCS: 99283; A9270

== ENCOUNTER 2021-10-19 17:42 | Emergency (ER) | payer MEDICAID ==
[2021-10-19] MEDS ORDERED: HYDROmorphone 1 MG/ML Syringe IM ONE (18:08)
== END 2021-10-19 18:45 | disposition home or self-care (01) ==
LOC: JD.ED 17:42
DX: G89.18 Other acute postprocedural pain (principal); B07.0 Plantar wart; E66.9 Obesity, unspecified; Z68.30 Body mass index [BMI] 30.0-30.9, adult; Z88.8 Allergy status to other drugs, medicaments and biological substances
CPT/HCPCS: 96372; 99283; J1170

== ENCOUNTER 2021-12-26 13:03 | Emergency (ER) | payer MEDICAID ==
[2021-12-26] MEDS ORDERED: Sodium Chloride 0.9% 1,000 ML IV ONE (13:48)
[2021-12-26] MEDS ORDERED: Sodium Chloride 0.9% 10 ML Syringe FLUSH PRN (13:48)
== END 2021-12-26 15:32 | disposition home or self-care (01) ==
LOC: JD.ED 13:03
DX: R55 Syncope and collapse (principal); E66.9 Obesity, unspecified; Z68.30 Body mass index [BMI] 30.0-30.9, adult; Z90.49 Acquired absence of other specified parts of digestive tract; Z88.8 Allergy status to other drugs, medicaments and biological substances
CPT/HCPCS: 36415; 70450; 71045; 80053; 81001; 83735; 85025; 96360; 99284; J3490; J7030

== ENCOUNTER 2022-01-03 17:02 | Emergency (ER) | payer MEDICAID ==
[2022-01-03] MEDS ORDERED: Sodium Chloride 0.9% 10 ML Syringe FLUSH PRN (17:35)
[2022-01-03 18:31] LABS: ESTIMATED GFR > 60 mL/min (>60)
== END 2022-01-03 20:05 | disposition home or self-care (01) ==
LOC: JD.ED 17:02
DX: R07.89 Other chest pain (principal); R42 Dizziness and giddiness; E66.9 Obesity, unspecified; Z68.32 Body mass index [BMI] 32.0-32.9, adult; Z86.16 Personal history of COVID-19; Z90.49 Acquired absence of other specified parts of digestive tract; Z88.8 Allergy status to other drugs, medicaments and biological substances
CPT/HCPCS: 36415; 80053; 83735; 83880; 84484; 85025; 85379; 85610; 85730; 93005; 99285; A9270; J3490

== ENCOUNTER 2022-03-22 20:13 | Emergency (ER) | payer MEDICAID ==
[2022-03-22 22:41] LABS: ESTIMATED GFR 100 mL/min (>60)
== END 2022-03-22 23:22 | disposition home or self-care (01) ==
LOC: JD.ED 20:13
DX: R07.89 Other chest pain (principal); R51.9 Headache, unspecified; R11.2 Nausea with vomiting, unspecified; R06.00 Dyspnea, unspecified; E66.9 Obesity, unspecified; Z68.30 Body mass index [BMI] 30.0-30.9, adult; Z88.8 Allergy status to other drugs, medicaments and biological substances; Z86.16 Personal history of COVID-19; Z20.822 Contact with and (suspected) exposure to COVID-19
CPT/HCPCS: 36415; 70450; 70450-26; 71046; 71046-26; 80053; 83735; 83880; 84484; 85025; 85379; 86140; 93005; 93010; 99284; 99285; U0002

== ENCOUNTER 2022-04-21 16:54 | Emergency (ER) | payer OTHER, MEDICAID ==
[2022-04-21] MEDS ORDERED: Ketorolac 60 MG/2 ML SDV IM ONE (18:07)
== END 2022-04-21 19:52 | disposition home or self-care (01) ==
LOC: JD.ED 16:54
DX: S13.4XXA Sprain of ligaments of cervical spine, initial encounter (principal); S80.01XA Contusion of right knee, initial encounter; E66.9 Obesity, unspecified; Z68.29 Body mass index [BMI] 29.0-29.9, adult; Z88.8 Allergy status to other drugs, medicaments and biological substances; Z86.16 Personal history of COVID-19; Z90.49 Acquired absence of other specified parts of digestive tract; V49.50XA Passenger injured in collision with unspecified motor vehicles in traffic accident, initial encounter; Y92.410 Unspecified street and highway as the place of occurrence of the external cause
CPT/HCPCS: 72125; 73562; 96372; 99285; J1885; 99283